=== PATIENT | female | born 1960 | race Caucasian/White ===

== ENCOUNTER 2016-05-28 07:07 | Inpatient (IN) | payer BC, OTHER ==
[~2016-05-28] VITALS: Ht 149.9 cm; Wt 73.0 kg
[2016-05-28 07:09] VITALS: Ht 149.9 cm; Wt 73.0 kg
[2016-05-28] MEDS ORDERED: ONDANSETRON 4 MG INJ IV STA (07:21)
[2016-05-28] MEDS ORDERED: SOD CHLORIDE 0.9% 1,000 ML IV STA (07:21)
[2016-05-28] MEDS ORDERED: HYDROmorphONE 1 MG/ML SYG IV STA (07:21)
[2016-05-28] MEDS ORDERED: METF-382 PO (07:37)
[2016-05-28] MEDS ORDERED: FAMO40TA52 PO (07:38)
[2016-05-28] MEDS ORDERED: LORA-186 PO (07:39)
[2016-05-28] MEDS ORDERED: AMLO-147 PO (07:39)
[2016-05-28] MEDS ORDERED: ATOR80TA75 PO (07:39)
[2016-05-28] MEDS ORDERED: ASPI-664 PO (07:40)
[2016-05-28 07:58] LABS: BASOPHIL # 0.1 10^3/ul (0.0-0.1); BASOPHILS % 0.6 % (0.0-2.0); HEMATOCRIT 44.7 % (37.0-47.0); HEMOGLOBIN 15.1 g/dl (12.0-16.0); LYMPHOCYTES % 6.3 % (15.0-51.0); MEAN CORPUSCULAR HEMOGLOBIN 29.8 pg (29.0-33.0); MEAN CORPUSCULAR HGB CONC 33.8 g/dl (32.0-37.0); MEAN CORPUSCULAR VOLUME 88.3 fl (82.0-101.0); MEAN PLATELET VOLUME 8.7 fl (7.4-10.4); MONOCYTE # 0.3 10^3/ul (0.3-0.9); MONOCYTES % 1.8 % (0.0-11.0); NEUTROPHIL # 14.2 10^3/ul (1.6-7.5); NEUTROPHILS % 91.3 % (39.0-77.0); PLATELET COUNT 364 10^3/UL (140-440); RED BLOOD COUNT 5.06 10^6/ul (4.20-5.40); RED CELL DISTRIBUTION WIDTH 13.1 % (11.5-14.5); UNCORRECTED WBC 15.6 10^3/ul (4.8-10.8); WHITE BLOOD COUNT 15.6 10^3/ul (4.8-10.8)
[2016-05-28 08:05] LABS: ALBUMIN 4.9 g/dl (3.3-4.9); CHLORIDE 100 mmol/L (97-110); POTASSIUM 3.7 mmol/L (3.5-5.1); SODIUM 140 mmol/L (135-144)
[2016-05-28 08:07] LABS: CONDITION 1; CREATININE 0.53 mg/dl (0.44-1.00); LH ANALYZER COMMENTS 1
[2016-05-28 08:08] LABS: ALANINE AMINOTRANSFERASE 116 IU/L (13-69); ALBUMIN/GLOBULIN RATIO 1.11; ALKALINE PHOSPHATASE 173 IU/L (42-121); ANION GAP 24 (8-16); ASPARTATE AMINO TRANSFERASE 48 IU/L (15-46); BILIRUBIN,INDIRECT 0.4 mg/dl (0-1.1); BILIRUBIN,TOTAL 0.4 mg/dl (0.2-1.3); BLOOD UREA NITROGEN 14 mg/dl (7-20); CALCIUM 10.1 mg/dl (8.4-10.2); CARBON DIOXIDE 20 mmol/L (21-31); GLUCOSE 242 mg/dl (70-220); TOTAL PROTEIN 9.3 g/dl (6.1-8.1)
--- NOTE | 2016-05-28 08:10 | RADRPT ---
PROCEDURE: CT abdomen and pelvis without IV contrast CLINICAL INDICATION: Abdominal pain, vomiting and chills. TECHNIQUE: Axial images were obtained through the abdomen and pelvis without IV contrast. Coronal and sagittal reconstructions were obtained. Automated exposure control was utilized. DLP = 842.6 m Gy-cm. CTDiol= 14.9 mGy. COMPARISON: none available FINDINGS: The visualized lower lungs are clear. Heart size is within normal limits. Diffuse fatty infiltration of the liver is identified. Multiple calcified gallstones are seen in th e gallbladder. The pancreas, spleen and adrenals are unremarkable. The kidneys demonstrate a normal appearance. No obstructive uropathy is observed. The bladder is fi lled with a small amount of urine. The uterus has an unremarkable appearance. Air and stool are seen scattered within the colon. The appendix is normal. No dilated loops of sm all bowel are observed. The stomach and duodenum are unremarkable. No intra-abdominal or pelvic free fluid or fluid collections are observed. No intra-abdominal or pe lvic lymphadenopathy is observed. Mild scattered calcified atherosclerosis is seen in the aorta. Mild degenerative changes are seen in the spine. Subcutaneous and muscular soft tissues surrounding the abdomen and pelvis are unremarkable. IMPRESSION: Limited evaluation for intra-abdominal inflammatory processes without IV contrast. If there is clin ical concern for a intra-abdominal inflammatory process repeat exam with IV contrast is recommended. Diffuse fatty infiltration of the liver. Cholelithiasis. Degenerative changes in the spine and calcified atherosclerosis in the arterial vasculature. RPTAT: AA .Rommel Parnell MD, MD Date Time Electronically viewed and signed by .Rommel Parnell MD, MD on 05/28/2016 08:10 .P/
[2016-05-28 08:38] LABS: TROPONIN-I < 0.012 ng/ml (0.00-0.12)
--- NOTE | 2016-05-28 09:00 | RADRPT ---
PROCEDURE: US Abdomen (right upper quadrant). CLINICAL INDICATION: Right upper quadrant pain. TECHNIQUE: Multiple real-time longitudinal and transverse images of the right upper quadrant of th e abdomen were acquired utilizing a curved array transducer. Images were reviewed on a high-resoluti on PACS workstation. COMPARISON: CT abdomen pelvis from the same date. FINDINGS: The liver is normal in size with a heterogeneous coarsened echotexture suggesting steatosis without focal mass or intrahepatic biliary dilatation. There is normal hepatopedal flow within the main por mare vein. The gallbladder is remarkable for multiple echogenic, shadowing gallstones in the depende nt portion of gallbladder. There is no wall thickening. There is no pericholecystic fluid. There is a positive sonographic Mckeon's sign. The common bile duct measures 2.9 mm in maximal dimension. The visualized portions of the pancreas are unremarkable with obscuration of the tail of the pancr eas. No free fluid is identified. The right kidney measures 11.1 cm in length. There is normal echogenicity within the right kidney. There is no perinephric fluid collection. No hydronephrosis, mass, or calculus is seen. IMPRESSION: 1. Heterogeneous echotexture of the liver suggesting diffuse steatosis. 2. Cholelithiasis with a positive sonographic Mckeon's sign without biliary tree dilatation. This may indicate associated acute cholecystitis. RPTAT: [facility] Physician Fermin Date Time Electronically viewed and signed by Physician Fermin on 05/28/2016 09:00 FIOR/
[2016-05-28 09:43] LABS: ADD UMIC YES; URINE BILIRUBIN (Dip) NEGATIVE (NEGATIVE); URINE BLOOD (Dip) TRACE (NEGATIVE); URINE COLOR LT. YELLOW (YELLOW); URINE KETONES (Dip) TRACE (NEGATIVE); URINE LEUKOCYTE ESTERASE (Dip) NEGATIVE (NEGATIVE); URINE NITRITE (Dip) NEGATIVE (NEGATIVE); URINE TOTAL PROTEIN (Dip) TRACE (NEGATIVE); URINE UROBILINOGEN (Dip) 0.2 E.U./dL (0.1-1.0)
[2016-05-28] MEDS ORDERED: GLUCOSE GEL 15 GRAM TUBE PO PRN ×2 (10:30)
[2016-05-28] MEDS ORDERED: DEXTROSE 50% 50 ML SYRINGE IV PRN ×2 (10:30)
[2016-05-28] MEDS ORDERED: NACL 0.9% 3 ML SYG IV SCH (10:30)
[2016-05-28] MEDS ORDERED: BISACODYL 10 MG SUPP PR PRN (10:30)
[2016-05-28] MEDS ORDERED: ONDANSETRON 4 MG INJ IV PRN ×2 (10:30)
[2016-05-28] MEDS ORDERED: GLUCAGON 1 MG INJ IM PRN (10:30)
[2016-05-28] MEDS ORDERED: ACETAMINOPHEN 325 MG TAB PO PRN ×2 (10:30)
[2016-05-28] MEDS ORDERED: GLUCOSE GEL 15 GRAM TUBE BUCCAL PRN (10:30)
[2016-05-28] MEDS ORDERED: ACETAMINOPHEN 650 MG SUPP PR PRN (10:30)
[2016-05-28] MEDS ORDERED: DOCUSATE SODIUM 100 MG CAP PO PRN (10:30)
--- NOTE | 2016-05-28 10:31 | ERA ---
ER Documentation Chief Complaint Date/Time DATE: 05/28/16 TIME: 10:29 Chief Complaint vomitting, back and abd pain started last night HPI Patient is a 55-year-old female with hypertension, diabetes, and high cholesterol who presents with abdominal pain. She is also had chills and subjective fever. She has had vomiting but no diarrhea. She has pain in the epigastric area and has been vomiting yellow. She has no treatment as of yet. Upon review of old medical records this is the patient's first visit to the ER. Her primary doctor is Dr. Yeung. ROS All systems reviewed and are negative except as per history of present illness. Medications Home Meds Reported Medications Aspirin (Low Dose Aspirin) 81 Mg Tablet.dr, 81 MG PO DAILY, #30 TAB 05/28/16 Atorvastatin* (Atorvastatin*) 80 Mg Tablet, 80 MG PO QHS, #30 TAB 05/28/16 Amlodipine Besylate* (Amlodipine Besylate*) 10 Mg Tablet, 10 MG PO DAILY, #30 TAB 05/28/16 Loratadine* (Claritin*) 10 Mg Tablet, 10 MG PO DAILY, TAB 05/28/16 Famotidine* (Famotidine*) 40 Mg Tablet, 40 MG PO HS, #30 TAB 05/28/16 Metformin Hcl* (Metformin Hcl*) 500 Mg Tablet, 500 MG PO WITH BREAKFAST, #30 TAB 05/28/16 Allergies Allergies: Coded Allergies: No Known Allergy (Unverified , 05/28/16) PMhx/Soc Positive for hypertension, diabetes, and high cholesterol Hx Alcohol Use: No Hx Substance Use: No Hx Tobacco Use: No Smoking Status: Never smoker FmHx Family History: diabetes Physical Exam Vitals Vital Signs Date Time Temp Pulse Resp B/P Pulse Ox O2 Delivery O2 Flow Rate FiO2 05/28/16 07:09 99.3 99 19 156/89 100 Physical Exam Const: Moderate distress secondary to pain Head: Atraumatic Eyes: Normal Conjunctiva ENT: Normal External Ears, Nose and Mouth. Neck: Full range of motion..~ No meningismus. Resp: Clear to auscultation bilaterally Cardio: Regular rate and rhythm, no murmurs Abd: Right upper quadrant and epigastric pain with pain with palpation, positive Mckeon sign Skin: No petechiae or rashes Back: No midline or flank tenderness Ext: No cyanosis, or edema Neur: Awake and alert Psych: Normal Mood and Affect Result Diagram: 05/28/16 0735 05/28/16 0735 Results 24 hrs Laboratory Tests Test 05/28/16 07:25 05/28/16 07:35 05/28/16 09:20 Bedside Glucose 241mg/dL Alanine Aminotransferase (ALT/SGPT) 116IU/L Albumin 4.9g/dl Albumin/Globulin Ratio 1.11 Alkaline Phosphatase 173IU/L Anion Gap 24 Aspartate Amino Transf (AST/SGOT) 48IU/L Basophils # 0.110^3/ul Basophils % 0.6% Blood Urea Nitrogen 14mg/dl Calcium Level 10.1mg/dl Carbon Dioxide Level 20mmol/L Chloride Level 100mmol/L Creatinine 0.53mg/dl Direct Bilirubin 0.00mg/dl Eosinophils # 0.010^3/ul Eosinophils % 0.0% Globulin 4.40g/dl Glucose Level 242mg/dl Hematocrit 44.7% Hemoglobin 15.1g/dl Indirect Bilirubin 0.4mg/dl Lipase 143U/L Lymphocytes # 1.010^3/ul Lymphocytes % 6.3% Mean Corpuscular Hemoglobin 29.8pg Mean Corpuscular Hemoglobin Concent 33.8g/dl Mean Corpuscular Volume 88.3fl Mean Platelet Volume 8.7fl Monocytes # 0.310^3/ul Monocytes % 1.8% Neutrophils # 14.210^3/ul Neutrophils % 91.3% Nucleated Red Blood Cells # 0.010^3/ul Nucleated Red Blood Cells % 0.0/100WBC Platelet Count 64965^3/UL Potassium Level 3.7mmol/L Red Blood Count 5.0610^6/ul Red Cell Distribution Width 13.1% Sodium Level 140mmol/L Total Bilirubin 0.4mg/dl Total Protein 9.3g/dl Troponin I < 0.012ng/ml White Blood Count 15.610^3/ul Urine Bilirubin NEGATIVE Urine Clarity CLEAR Urine Color LT. YELLOW Urine Glucose 0.5%% Urine Hemoglobin TRACE Urine Ketones TRACE Urine Leukocyte Esterase NEGATIVE Urine Microscopic RBC 2-5/HPF Urine Microscopic WBC 2-5/HPF Urine Nitrite NEGATIVE Urine Specific [place] 1.020 Urine Total Protein TRACE Urine Urobilinogen 0.2 E.U./dL Urine pH 6.0 Current Medications Medications (Trade) Dose Ordered Sig/Temo Route PRN Reason Start Time Stop Time Status Last Admin Dose Admin Sodium Chloride (NS) 1,000 ml @ 1,000 mls/hr Q1H STAT IV 05/28/16 07:21 05/28/16 08:20 DC 05/28/16 07:41 Hydromorphone HCl (Dilaudid) 1 mg ONCE STAT IV 05/28/16 07:21 05/28/16 07:22 DC 05/28/16 07:42 Ondansetron HCl (Zofran Inj) 4 mg ONCE STAT IV 05/28/16 07:21 05/28/16 07:22 DC 05/28/16 07:41 Ondansetron HCl (Zofran Inj) 4 mg BRIDGE ORDER PRN IV NAUSEA AND/OR VOMITING 05/28/16 10:30 05/29/16 10:29 Acetaminophen (Tylenol Tab) 650 mg ER BRIDGE PRN PO MILD PAIN/FEVER 05/28/16 10:30 05/29/16 10:29 Insulin Aspart (Novolog Insulin Pen) NOVOLOG *MILD* ALGORI... Q6 SC 05/28/16 12:00 UNV Miscellaneous Information (* Miscellaneous Pharmacy Order) HYPOGLYCEMIA PROTOCOL w... ONCE ONCE XX 05/28/16 10:30 05/28/16 10:31 UNV Miscellaneous Information (* Miscellaneous Pharmacy Order) Discontinue Glyburide, Glipizide,... ONCE ONCE XX 05/28/16 10:30 05/28/16 10:31 UNV Miscellaneous Information (* Miscellaneous Pharmacy Order) Discontinue all previ... ONCE ONCE XX 05/28/16 10:30 05/28/16 10:31 UNV Amlodipine Besylate (Norvasc) 10 mg DAILY PO 05/29/16 09:00 UNV Aspirin 81 mg 81 mg DAILY PO 05/29/16 09:00 UNV Potassium Chloride/Sodium Chloride (04/29 NS + KCl 20 Meq) 1,000 ml @ 80 mls/hr [id number] IV 05/28/16 10:13 UNV IV Flush (NS 3 ml) 3 ml PER PROTOCOL IV 05/28/16 10:30 UNV Ondansetron HCl (Zofran Inj) 4 mg Q6H PRN IV NAUSEA AND/OR VOMITING 05/28/16 10:30 UNV Acetaminophen (Tylenol Tab) 650 mg Q6H PRN PO PAIN LEVEL 1-3 OR FEVER 05/28/16 10:30 UNV Acetaminophen (Tylenol Supp) 650 mg Q6H PRN [place] PAIN LEVEL 1-3 OR FEVER 05/28/16 10:30 UNV Morphine Sulfate (morphine) 2 mg Q4H PRN IV SEVERE PAIN LEVEL 7-10 05/28/16 10:30 UNV Docusate Sodium (Colace) 100 mg Q12H PRN PO CONSTIPATION 05/28/16 10:30 UNV Bisacodyl (Dulcolax Supp) 10 mg DAILY PRN [place] CONSTIPATION 05/28/16 10:30 UNV Pantoprazole (Protonix Iv) 40 mg DAILY@06 IV 05/29/16 06:00 UNV Procedures/MDM Ultrasound shows possible acute cholecystitis per radiology. EKG and chest x-ray pending. Patient is a 55-year-old female presents with what appears to be acute cholecystitis. Her white blood cell count is elevated as well as her AST and ALT. The patient was given Dilaudid and Zofran as well as normal saline fluid bolus. The patient will be admitted to Dr. Campos from the panel team as she has [facility] insurance. I also spoke with Dr. Carpenter who is the surgeon on- call who will see the patient in consultation. The patient will be admitted to a medical surgical bed. At this point I doubt pancreatitis or appendicitis. Departure Diagnosis: Primary Impression: Abdominal pain Qualified Code: R10.11 - Right upper quadrant abdominal pain Additional Impression: Cholecystitis Condition: GLORIA Loving MD May 28, 2016 10:31
--- NOTE | 2016-05-28 10:34 | CONS ---
Date/Time of Note Date/Time of Note DATE: 05/28/16 TIME: 10:32 Assessment/Plan Assessment/Plan Additional Assessment/Plan Preliminary assessment and plan post remote check: 55 y/o with cholelithiasis and clinical picture concerning for acute cholecystitis. Due to elevation of alk phos, I'm also recommending an MRCP and GI consultation for possible ERCP if indicated by clinical data. Lap carson once these are done. Appreciate the consult. Full note to follow visit with patient. Consultation Date/Type/Reason Admit Date/Time Social History Smoking Status: Never smoker Exam/Review of Systems Vital Signs Vitals Vital Signs Date Time Temp Pulse Resp B/P Pulse Ox O2 Delivery O2 Flow Rate FiO2 05/28/16 07:09 99.3 99 19 156/89 100 Results Result Diagram: 05/28/16 0735 05/28/16 0735 Results 24 hrs Laboratory Tests Test 05/28/16 07:25 05/28/16 07:35 05/28/16 09:20 Bedside Glucose 241 H Alanine Aminotransferase (ALT/SGPT) 116 H Albumin 4.9 Albumin/Globulin Ratio 1.11 Alkaline Phosphatase 173 H Anion Gap 24 H Aspartate Amino Transf (AST/SGOT) 48 H Basophils # 0.1 Basophils % 0.6 Blood Urea Nitrogen 14 Calcium Level 10.1 Carbon Dioxide Level 20 L Chloride Level 100 Creatinine 0.53 Direct Bilirubin 0.00 Eosinophils # 0.0 Eosinophils % 0.0 Globulin 4.40 H Glucose Level 242 H Hematocrit 44.7 Hemoglobin 15.1 Indirect Bilirubin 0.4 Lipase 143 Lymphocytes # 1.0 Lymphocytes % 6.3 L Mean Corpuscular Hemoglobin 29.8 Mean Corpuscular Hemoglobin Concent 33.8 Mean Corpuscular Volume 88.3 Mean Platelet Volume 8.7 Monocytes # 0.3 Monocytes % 1.8 Neutrophils # 14.2 H Neutrophils % 91.3 H Nucleated Red Blood Cells # 0.0 Nucleated Red Blood Cells % 0.0 Platelet Count 364 Potassium Level 3.7 Red Blood Count 5.06 Red Cell Distribution Width 13.1 Sodium Level 140 Total Bilirubin 0.4 Total Protein 9.3 H Troponin I < 0.012 White Blood Count 15.6 H Urine Bilirubin NEGATIVE Urine Clarity CLEAR Urine Color LT. YELLOW Urine Glucose 0.5% H Urine Hemoglobin TRACE Urine Ketones TRACE H Urine Leukocyte Esterase NEGATIVE Urine Microscopic RBC 2-5 Urine Microscopic WBC 2-5 Urine Nitrite NEGATIVE Urine Specific [place] 1.020 Urine Total Protein TRACE Urine Urobilinogen 0.2 E.U./dL Urine pH 6.0 Medications Medications Current Medications Insulin Aspart (Novolog Insulin Pen) NOVOLOG *MILD* ALGORI... Q6 SC ; Start at 12:00; Status UNV Amlodipine Besylate (Norvasc) 10 mg DAILY PO ; Start 05/29/16 at 09:00 Aspirin 81 mg 81 mg DAILY PO ; Start 05/29/16 at 09:00 Potassium Chloride/Sodium Chloride (04/29 NS + KCl 20 Meq) 1,000 ml @ 80 mls/hr [id number] IV ; Start 05/28/16 at 10:13 Ondansetron HCl (Zofran Inj) 4 mg Q6H PRN IV NAUSEA AND/OR VOMITING; Start at 10:30; Status UNV Acetaminophen (Tylenol Tab) 650 mg Q6H PRN PO PAIN LEVEL 1-3 OR FEVER; Start at 10:30 Acetaminophen (Tylenol Supp) 650 mg Q6H PRN [place] PAIN LEVEL 1-3 OR FEVER; Start 05/28/16 at 10:30 Morphine Sulfate (morphine) 2 mg Q4H PRN IV SEVERE PAIN LEVEL 7-10; Start 05/28 at 10:30; Status UNV Docusate Sodium (Colace) 100 mg Q12H PRN PO CONSTIPATION; Start 05/28/16 at 10: 30 Bisacodyl (Dulcolax Supp) 10 mg DAILY PRN [place] CONSTIPATION; Start 05/28/16 at 10 :30 Pantoprazole (Protonix Iv) 40 mg DAILY@06 IV ; Start 05/29/16 at 06:00; Status UNV Miscellaneous Information 1 ea NOTE XX ; Start 05/28/16 at 10:30 Glucose (Glutose) 15 gm Q15M PRN PO DECREASED GLUCOSE; Start 05/28/16 at 10:30 Glucose (Glutose) 22.5 gm Q15M PRN PO DECREASED GLUCOSE; Start 05/28/16 at 10: 30 Dextrose (D50w Syringe) 25 ml Q15M PRN IV DECREASED GLUCOSE; Start 05/28/16 at 10:30 Dextrose (D50w Syringe) 50 ml Q15M PRN IV DECREASED GLUCOSE; Start 05/28/16 at 10:30 Glucagon (Glucagen) 1 mg Q15M PRN IM DECREASED GLUCOSE; Start 05/28/16 at 10:30 Glucose (Glutose) 15 gm Q15M PRN BUCCAL DECREASED GLUCOSE; Start 05/28/16 at 10 :30 ALON MODI M.D. May 28, 2016 10:34
--- NOTE | 2016-05-28 11:37 | RADRPT ---
PROCEDURE: Chest Radiograph. CLINICAL INDICATION: Preop. TECHNIQUE: Single frontal chest radiograph. COMPARISON: CT abdomen pelvis 05/28/2016. FINDINGS: Heart size is within normal limits. Atherosclerotic calcifications are present. No infiltrate or effusion is seen. The bones are intact. IMPRESSION: 1. No evidence of acute cardiopulmonary disease. 2. Atherosclerotic vascular disease. RPTAT: KK .Yaw Teixeira MD, MD Date Time Electronically viewed and signed by .Yaw Teixeira MD, on 05/28/2016 11:36 .B/
--- NOTE | 2016-05-28 13:29 | CONS ---
Date/Time of Note Date/Time of Note DATE: 05/28/16 TIME: 13:24 Assessment/Plan Assessment/Plan Additional Assessment/Plan Abdominal pain Nausea Vomiting * CT abdomen noted cholelithiasis * MRCP in process to rule out choledocholithiasis * ERCP if clinically indicated. Patient and daughter advised of risks/benefits/ alternatives to procedure and they are agreeable to proceed * IV fluid hydration * N.p.o. * Monitor labs Transaminitis * Likely secondary to biliary obstruction * Acute hepatitis panel ordered Surgery following Further recommendations depend on clinical course Patient seen in collaboration with Dr. Gallegos Consultation Date/Type/Reason Admit Date/Time Type of Consultation: Gastroenterology Reason for Consultation Abdominal pain Hx of Present Illness 55-year-old female reports of acute epigastric abdominal pain, chills, nausea and nonbloody bilious vomiting 1 day. Patient states symptoms began abruptly last night. Patient denies hematemesis, diarrhea, fever, chest pain, shortness of breath, sick contacts, travel outside the [place], and alcohol abuse. Patient denies previous episode, aggravating and alleviating factors. Social History Smoking Status: Never smoker Exam/Review of Systems Vital Signs Vitals Vital Signs Date Time Temp Pulse Resp B/P Pulse Ox O2 Delivery O2 Flow Rate FiO2 05/28/16 07:09 99.3 99 19 156/89 100 Exam Constitutional: alert, obese, oriented, well developed Psych: nl mood/affect Head: normocephalic Eyes: EOMI, nl conjunctiva, nl lids ENMT: nl external ears & nose, nl lips & teeth, nl nasal mucosa & septum Respiratory: normal air movement Cardiovascular: regular rate and rhythm Gastrointestinal: soft, tender (Right upper quadrant and epigastric) Neurological: PRINT DEVELOPER II-XII intact Results Result Diagram: 05/28/16 0735 05/28/16 0735 Results 24 hrs Laboratory Tests Test 05/28/16 07:25 05/28/16 07:35 05/28/16 09:20 05/28/16 12:56 Bedside Glucose 241 H 184 Alanine Aminotransferase (ALT/SGPT) 116 H Albumin 4.9 Albumin/Globulin Ratio 1.11 Alkaline Phosphatase 173 H Anion Gap 24 H Aspartate Amino Transf (AST/SGOT) 48 H Basophils # 0.1 Basophils % 0.6 Blood Urea Nitrogen 14 Calcium Level 10.1 Carbon Dioxide Level 20 L Chloride Level 100 Creatinine 0.53 Direct Bilirubin 0.00 Eosinophils # 0.0 Eosinophils % 0.0 Globulin 4.40 H Glucose Level 242 H Hematocrit 44.7 Hemoglobin 15.1 Indirect Bilirubin 0.4 Lipase 143 Lymphocytes # 1.0 Lymphocytes % 6.3 L Mean Corpuscular Hemoglobin 29.8 Mean Corpuscular Hemoglobin Concent 33.8 Mean Corpuscular Volume 88.3 Mean Platelet Volume 8.7 Monocytes # 0.3 Monocytes % 1.8 Neutrophils # 14.2 H Neutrophils % 91.3 H Nucleated Red Blood Cells # 0.0 Nucleated Red Blood Cells % 0.0 Platelet Count 364 Potassium Level 3.7 Red Blood Count 5.06 Red Cell Distribution Width 13.1 Sodium Level 140 Total Bilirubin 0.4 Total Protein 9.3 H Troponin I < 0.012 White Blood Count 15.6 H Urine Bilirubin NEGATIVE Urine Clarity CLEAR Urine Color LT. YELLOW Urine Glucose 0.5% H Urine Hemoglobin TRACE Urine Ketones TRACE H Urine Leukocyte Esterase NEGATIVE Urine Microscopic RBC 2-5 Urine Microscopic WBC 2-5 Urine Nitrite NEGATIVE Urine Specific [place] 1.020 Urine Total Protein TRACE Urine Urobilinogen 0.2 E.U./dL Urine pH 6.0 Medications Medications Current Medications Insulin Aspart (Novolog Insulin Pen) NOVOLOG *MILD* ALGORI... Q6 SC ; Start at 12:00 Amlodipine Besylate (Norvasc) 10 mg DAILY PO ; Start 05/29/16 at 09:00 Aspirin 81 mg 81 mg DAILY PO ; Start 05/29/16 at 09:00 Potassium Chloride/Sodium Chloride (04/29 NS + KCl 20 Meq) 1,000 ml @ 80 mls/hr [id number] IV ; Start 05/28/16 at 10:13 Ondansetron HCl (Zofran Inj) 4 mg Q6H PRN IV NAUSEA AND/OR VOMITING; Start at 10:30 Acetaminophen (Tylenol Tab) 650 mg Q6H PRN PO PAIN LEVEL 1-3 OR FEVER; Start at 10:30 Acetaminophen (Tylenol Supp) 650 mg Q6H PRN [place] PAIN LEVEL 1-3 OR FEVER; Start 05/28/16 at 10:30 Morphine Sulfate (morphine) 2 mg Q4H PRN IV SEVERE PAIN LEVEL 7-10; Start 05/28 at 10:30 Docusate Sodium (Colace) 100 mg Q12H PRN PO CONSTIPATION; Start 05/28/16 at 10: 30 Bisacodyl (Dulcolax Supp) 10 mg DAILY PRN [place] CONSTIPATION; Start 05/28/16 at 10 :30 Pantoprazole (Protonix Iv) 40 mg DAILY@06 IV ; Start 05/29/16 at 06:00 Miscellaneous Information 1 ea NOTE XX ; Start 05/28/16 at 10:30 Glucose (Glutose) 15 gm Q15M PRN PO DECREASED GLUCOSE; Start 05/28/16 at 10:30 Glucose (Glutose) 22.5 gm Q15M PRN PO DECREASED GLUCOSE; Start 05/28/16 at 10: 30 Dextrose (D50w Syringe) 25 ml Q15M PRN IV DECREASED GLUCOSE; Start 05/28/16 at 10:30 Dextrose (D50w Syringe) 50 ml Q15M PRN IV DECREASED GLUCOSE; Start 05/28/16 at 10:30 Glucagon (Glucagen) 1 mg Q15M PRN IM DECREASED GLUCOSE; Start 05/28/16 at 10:30 Glucose (Glutose) 15 gm Q15M PRN BUCCAL DECREASED GLUCOSE; Start 05/28/16 at 10 :30 BASILIO KIM May 28, 2016 13:29
[2016-05-28] MEDS: morphine 2 MG INJ IV PRN ×2 (13:39→18:35)
[2016-05-28] MEDS: INSULIN ASPART [NOVOLOG] 3 ML PEN SC SCH ×2 (13:39→18:40)
[2016-05-28 13:42] VITALS: TEMP 98.3
[2016-05-28 13:48] LABS: HAAIG REFLEX REFLEX FILED
[2016-05-28 14:56] LABS: HEPATITIS B CORE ANTIBODY NEGATIVE (NEGATIVE)
--- NOTE | 2016-05-28 15:23 | RADRPT ---
PROCEDURE: MRCP without contrast. CLINICAL INDICATION: Right upper quadrant abdominal pain. TECHNIQUE: Routine MRCP was obtained without the administration of intravenous contrast. COMPARISON: Ultrasound, 05/28/2016. FINDINGS: There are multiple small gallstones with diffuse gallbladder wall thickening. Note is made of a sin gle calculus lodged within the neck of the gallbladder. There is no significant intrahepatic bile duct dilatation. There is no evidence of filling defect o r choledocholithiasis. There is no biliary stricture. The pancreatic duct is within normal limits. Trace perihepatic fluid. IMPRESSION: Cholelithiasis with diffuse gallbladder wall thickening; recommend clinical correlation for cholecys titis. No significant biliary dilatation, filling defect, or choledocholithiasis. RPTAT: EE .Paulo Muir MD, Date Time Electronically viewed and signed by .Paulo Muir MD, on 05/28/2016 15:26 .C/
[2016-05-28 18:30] VITALS: BP 145/78; PULSE 90; RESP 16
[2016-05-28 19:46] VITALS: BP 130/66; RESP 18
[2016-05-28] MEDS: 1/2 NS + KCL 20 MEQ 1,000 ML IV SCH ×2 (20:39→22:43)
--- NOTE | 2016-05-28 22:40 | CONS ---
[facility] INITIAL INPATIENT CONSULTATION NOTE DATE OF CONSULTATION: 05/28/2016 PLACE OF SERVICE: [facility] emergency department. IMPRESSION AND PLAN: A very pleasant 55-year-old lady with comorbidities of body mass index 32.5 as well as diabetes and hypertension and hyperlipidemia presenting with cholelithiasis and likely cholecystitis, but with slight concern for choledocholithiasis given elevation in alkaline phosphatase. I recommended an MRCP and gastroenterology consultation for possible consideration for ERCP. Laparoscopic cholecystectomy after above is done. I explained the rationale behind my recommendations to the patient and her daughter and answered all their questions to the best of my ability. They appeared to understand and agree with the plans. With the above assessment I have recommended the followin. Admit to the hospital. 2. Resuscitate. 3. Symptom control. 4. Gastroenterology consultation. 5. MRCP. 6. Possible ERCP if MRCP shows choledocholithiasis. 7. Laparoscopic cholecystectomy after above is done. Thank you again for allowing us to participate in the care of this very pleasant lady and her wonderful family. If there are any questions, please feel free to call me at area code [phone]. TOTAL VISIT TIME: 45 minutes of which more than half was spent in [id number] discussion with the patient, discussions with her daughter as well as coordination of care between multiple physicians and providers. DATE OF ADMISSION: 05/28/2016 HISTORY OF PRESENT ILLNESS: The patient is a very pleasant 55-year-old lady with comorbid issues including BMI of 32.5 and no other major medical or surgical issues who presented to [facility] emergency department with abdominal pain localized to the right upper quadrant associated with some nausea and vomiting. No prior episodes of similar issues in the past and no known prior biliary or pancreatic issues. Fairly healthy otherwise without any significant risk factors other than BMI 32.5. No other surgeries in the past. The patient's workup included laboratory values that showed white blood cell count of 15.6 as well as elevated alkaline phosphatase to 173 and right upper quadrant ultrasound that showed heterogeneous echotexture of the liver suggesting diffuse steatosis as well as cholelithiasis with positive sonographic Mckeon sign without biliary tree dilatation. A noncontrast CT of the abdomen and pelvis was also done that demonstrated similar findings with degenerative changes of the spine and calcified atherosclerosis in the arterial vasculature. I was kindly asked to consult and I had a chance to meet with the patient and family in the emergency department and do a complete history and physical myself. No other major complaints on my visit. PAST MEDICAL HISTORY: 1. BMI 32.5. 2. Diabetes. 3. Gastritis. 4. Hyperlipidemia. 5. Hypertension. PAST SURGICAL HISTORY: None. ALLERGIES: NO KNOWN DRUG ALLERGIES. MEDICATIONS: 1. Amlodipine. 2. Aspirin. 3. Atorvastatin. 4. Famotidine. 5. Loratadine. 6. Metformin. SOCIAL HISTORY: The patient does not report any smoking, drinking, or intravenous drug use. FAMILY HISTORY: No mention of major medical, surgical or oncologic issues in the family. There is history of diabetes and hypertension. REVIEW OF SYSTEMS: Other than above-mentioned, there are no other pertinent positives or pertinent negatives in a complete 14-point review of systems. PHYSICAL EXAMINATION: GENERAL: The patient appears to be a very pleasant lady of descent, appearing stated age, lying in bed comfortably and in mild distress. BMI 32.5. VITAL SIGNS: Showed temperature 99.3, blood pressure 156/89, pulse 99, respiratory rate 19, pulse oximetry 100% on room air. HEENT: Normocephalic and atraumatic. Extraocular muscles and hearing are grossly intact bilaterally and symmetrically. Sclerae are nonicteric. Oral cavity is clear; oral mucosa appeared to be pink and moist. Dentition: fair. NECK: Supple. There is no lymphadenopathy or JVD. There is no submental, submandibular or supraclavicular lymphadenopathy. CHEST: Rises symmetrically with each breath; patient is breathing comfortably. There are no audible wheezes, rales or rhonchi on the gross exam. HEART: HPulse is regular and palpable on the *right wrist. Capillary refill was normal. Carotid pulses are palpable bilaterally and symmetrically in the neck. EXTREMITIES: Lower extremities contain no pitting edema around the ankles bilaterally and symmetrically. ABDOMEN: Soft, nondistended and minimally tender to palpation in the right upper quadrant. There are no peritoneal signs or guarding. There is no evidence of organomegaly, caput medusae, engorged subcutaneous veins, or ascites. SKIN: Appears to be pink and feels warm to touch. NEUROLOGIC: Awake, alert, and follows commands appropriately. LABORATORY DATA: Reviewed above. IMAGING: Reviewed above. Dictated By: ALON KOO/OLEG Conf#: [id number] DID#: [id number] CC: RODDY CASTELLANOS MD; ALON MODI MD;*EndCC* MTDD
[2016-05-29] VITALS (14 sets, daily range): BP systolic 87–134; BP diastolic 44–73; PULSE 74–88; RESP 15–22
[2016-05-29] MEDS: INSULIN ASPART [NOVOLOG] 3 ML PEN SC SCH ×5 (00:14→23:45)
[2016-05-29 05:33] LABS: BASOPHILS % 0.1 % (0.0-2.0); HEMATOCRIT 41.7 % (37.0-47.0); HEMOGLOBIN 14.2 g/dl (12.0-16.0); LYMPHOCYTES # 1.1 10^3/ul (0.8-2.9); LYMPHOCYTES % 5.3 % (15.0-51.0); MEAN CORPUSCULAR HEMOGLOBIN 29.9 pg (29.0-33.0); MEAN CORPUSCULAR HGB CONC 34.1 g/dl (32.0-37.0); MEAN CORPUSCULAR VOLUME 87.7 fl (82.0-101.0); MEAN PLATELET VOLUME 8.3 fl (7.4-10.4); MONOCYTE # 1.4 10^3/ul (0.3-0.9); MONOCYTES % 6.8 % (0.0-11.0); NEUTROPHIL # 18.2 10^3/ul (1.6-7.5); NEUTROPHILS % 87.8 % (39.0-77.0); PLATELET COUNT 339 10^3/UL (140-440); RED BLOOD COUNT 4.75 10^6/ul (4.20-5.40); RED CELL DISTRIBUTION WIDTH 13.3 % (11.5-14.5); UNCORRECTED WBC 20.7 10^3/ul (4.8-10.8); WHITE BLOOD COUNT 20.7 10^3/ul (4.8-10.8)
[2016-05-29] MEDS: PANTOPRAZOLE 40 MG INJ IV SCH (05:49)
[2016-05-29 05:50] LABS: CONDITION 1; LH ANALYZER COMMENTS 1
[2016-05-29 06:04] LABS: POTASSIUM 3.9 mmol/L (3.5-5.1)
[2016-05-29 06:06] LABS: CREATININE 0.52 mg/dl (0.44-1.00)
[2016-05-29 06:07] LABS: ALBUMIN/GLOBULIN RATIO 1.02; CALCIUM 9.3 mg/dl (8.4-10.2); TOTAL PROTEIN 7.9 g/dl (6.1-8.1)
[2016-05-29 06:08] LABS: MAGNESIUM 2.1 mg/dl (1.7-2.5)
[2016-05-29 06:58] LABS: AMYLASE 37 U/L (11-123)
[2016-05-29] MEDS ORDERED: EPHEDrine SULFATE 50 MG/5 ML SYG ONE (07:00)
[2016-05-29] MEDS: morphine 2 MG INJ IV PRN (07:52)
[2016-05-29] MEDS: 1/2 NS + KCL 20 MEQ 1,000 ML IV SCH (08:17)
[2016-05-29] MEDS: PIPER-TAZO 3.375 GM IV (PMX) 100 ML IVPB SCH ×4 (08:18→23:42)
[2016-05-29] MEDS: ASPIRIN (EC) 81 MG TAB PO SCH (08:22)
[2016-05-29] MEDS: AMLODIPINE 10 MG TAB PO SCH (08:22)
--- NOTE | 2016-05-29 09:55 | CONS ---
Date/Time of Note Date/Time of Note DATE: 05/29/16 TIME: 09:43 Assessment/Plan Assessment/Plan Chief Complaint/Hosp Course 55-year-old female reports of acute epigastric abdominal pain, chills, nausea and nonbloody bilious vomiting 1 day. Patient states symptoms began abruptly last night. Patient denies hematemesis, diarrhea, fever, chest pain, shortness of breath, sick contacts, travel outside the [place], and alcohol abuse. Patient denies previous episode, aggravating and alleviating factors. Problems: Additional Assessment/Plan Abdominal pain Nausea Vomiting * CT abdomen noted cholelithiasis * MRCP 05-28-16: Cholelithiasis with diffuse gallbladder wall thickening; recommend clinical correlation for cholecystitis. * No significant biliary dilatation, filling defect, or choledocholithiasis. * ERCP if clinically indicated. Patient and daughter advised of risks/benefits/ alternatives to procedure and they are agreeable to proceed * IV fluid hydration * N.p.o. * Monitor labs Transaminitis * Likely secondary to cholelithiasis * Acute hepatitis panel, negative Surgery following Further recommendations depend on clinical course Patient seen in collaboration with Dr. Gallegos Consultation Date/Type/Reason Admit Date/Time May 28, 2016 at 10:02 Initial Consult Date Type of Consultation: Gastroenterology 24 HR Interval Summary Free Text/Dictation Amylase and lipase WNL Patient reports less pain States cholecystectomy as inpatient tomorrow Exam/Review of Systems Vital Signs Vitals Vital Signs Date Time Temp Pulse Resp B/P Pulse Ox O2 Delivery O2 Flow Rate FiO2 05/29/16 07:10 101.1 94 20 134/73 94 05/28/16 18:30 Room Air Intake and Output 05/28/16 05/28/16 05/29/16 15:00 23:00 07:00 Intake Total 700 ml Balance 700 ml Exam Constitutional: alert, obese, oriented, well developed Psych: nl mood/affect Head: normocephalic Eyes: EOMI, nl conjunctiva, nl lids ENMT: nl external ears & nose, nl lips & teeth, nl nasal mucosa & septum Respiratory: normal air movement Cardiovascular: regular rate and rhythm Gastrointestinal: soft, tender (Right upper quadrant and epigastric) Neurological: RECRUITMENT AND OUTREACH ASSISTANT II-XII intact Results Result Diagram: 05/29/16 0500 05/29/16 0500 Results 24 hrs Laboratory Tests Test 05/28/16 12:56 05/28/16 18:38 05/29/16 00:09 05/29/16 05:00 Bedside Glucose 184 183 213 Alanine Aminotransferase (ALT/SGPT) 85 H Albumin 4.0 Albumin/Globulin Ratio 1.02 Alkaline Phosphatase 139 H Amylase Level 37 Anion Gap 19 H Aspartate Amino Transf (AST/SGOT) 28 Basophils # 0.0 Basophils % 0.1 Blood Urea Nitrogen 12 Calcium Level 9.3 Carbon Dioxide Level 23 Chloride Level 99 Cholesterol Level 190 Cholesterol/HDL Ratio 4.0 Creatinine 0.52 Direct Bilirubin 0.00 Eosinophils # 0.0 Eosinophils % 0.0 Globulin 3.90 H Glucose Level 197 HDL Cholesterol 47 Hematocrit 41.7 Hemoglobin 14.2 Hemoglobin A1c 7.8 H Indirect Bilirubin 1.0 LDL Cholesterol, Calculated 122 Lipase 66 Lymphocytes # 1.1 Lymphocytes % 5.3 L Magnesium Level 2.1 Mean Corpuscular Hemoglobin 29.9 Mean Corpuscular Hemoglobin Concent 34.1 Mean Corpuscular Volume 87.7 Mean Platelet Volume 8.3 Monocytes # 1.4 H Monocytes % 6.8 Neutrophils # 18.2 H Neutrophils % 87.8 H Nucleated Red Blood Cells # 0.0 Nucleated Red Blood Cells % 0.0 Platelet Count 339 Potassium Level 3.9 Red Blood Count 4.75 Red Cell Distribution Width 13.3 Sodium Level 137 Total Bilirubin 1.0 Total Protein 7.9 # Triglycerides Level 103 White Blood Count 20.7 #H Test 05/29/16 05:44 Bedside Glucose 196 Medications Medications Current Medications Insulin Aspart (Novolog Insulin Pen) NOVOLOG *MILD* ALGORI... Q6 SC Last administered on 05/29/16 05:47; Admin Dose 2 UNIT; Start 05/28/16 at 12:00 Amlodipine Besylate (Norvasc) 10 mg DAILY PO Last administered on 05/29/16 08: 22; Admin Dose 10 MG; Start 05/29/16 at 09:00 Aspirin 81 mg 81 mg DAILY PO ; Start 05/29/16 at 09:00 Potassium Chloride/Sodium Chloride (04/29 NS + KCl 20 Meq) 1,000 ml @ 80 mls/hr [id number] IV Last administered on 05/29/16 08:17; Admin Dose 80 MLS/HR; Start at 10:13 Ondansetron HCl (Zofran Inj) 4 mg Q6H PRN IV NAUSEA AND/OR VOMITING Last administered on 05/28/16 13:39; Admin Dose 4 MG; Start 05/28/16 at 10:30 Acetaminophen (Tylenol Tab) 650 mg Q6H PRN PO PAIN LEVEL 1-3 OR FEVER Last administered on 05/29/16 08:22; Admin Dose 650 MG; Start 05/28/16 at 10:30 Acetaminophen (Tylenol Supp) 650 mg Q6H PRN AR PAIN LEVEL 1-3 OR FEVER; Start 05/28/16 at 10:30 Morphine Sulfate (morphine) 2 mg Q4H PRN IV SEVERE PAIN LEVEL 7-10 Last administered on 05/29/16 07:52; Admin Dose 2 MG; Start 05/28/16 at 10:30 Docusate Sodium (Colace) 100 mg Q12H PRN PO CONSTIPATION; Start 05/28/16 at 10: 30 Bisacodyl (Dulcolax Supp) 10 mg DAILY PRN AR CONSTIPATION; Start 05/28/16 at 10 :30 Pantoprazole (Protonix Iv) 40 mg DAILY@06 IV Last administered on 05/29/16 05: 49; Admin Dose 40 MG; Start 05/29/16 at 06:00 Miscellaneous Information 1 ea NOTE XX ; Start 05/28/16 at 10:30 Glucose (Glutose) 15 gm Q15M PRN PO DECREASED GLUCOSE; Start 05/28/16 at 10:30 Glucose (Glutose) 22.5 gm Q15M PRN PO DECREASED GLUCOSE; Start 05/28/16 at 10: 30 Dextrose (D50w Syringe) 25 ml Q15M PRN IV DECREASED GLUCOSE; Start 05/28/16 at 10:30 Dextrose (D50w Syringe) 50 ml Q15M PRN IV DECREASED GLUCOSE; Start 05/28/16 at 10:30 Glucagon (Glucagen) 1 mg Q15M PRN IM DECREASED GLUCOSE; Start 05/28/16 at 10:30 Glucose 15 gm 15 gm Q15M PRN BUCCAL DECREASED GLUCOSE; Start 05/28/16 at 10:30 Piperacillin Sod/ Tazobactam Sod (Zosyn 3.375gm/ 100 ml (Pmx)) 100 ml @ 200 mls /hr Q6 IVPB Last administered on 05/29/16 08:18; Admin Dose 200 MLS/HR; Start 05/29/16 at 08:00 BASILIO KIM May 29, 2016 09:54
[2016-05-29] MEDS ORDERED: FENTAnyl 50 MCG/ML VIAL ONE (10:04)
[2016-05-29] MEDS ORDERED: SUCCINYLCHOLINE CHLORIDE 100 MG/5 ML SYG IV ONE (10:04)
[2016-05-29] MEDS ORDERED: LIDOCAINE 2% (SDV) 5 ML INJ ONE (10:04)
[2016-05-29] MEDS ORDERED: ROCURONIUM 50 MG INJ ONE (10:04)
[2016-05-29] MEDS ORDERED: MIDAZOLAM 1 MG/ML 2 ML INJ ONE (10:04)
[2016-05-29] MEDS ORDERED: PROPOFOL 20 ML ONE (10:04)
--- NOTE | 2016-05-29 10:15 | HP ---
Date/Time of Note Date/Time of Note DATE: 05/28/2016 TIME: 6:00 pm Assessment/Plan VTE Prophylaxis VTE Prophylaxis Intervention: SCD's Lines/Catheters IV Catheter Type (from Nrs): Peripheral IV Urinary Cath still in place: No Assessment/Plan Chief Complaint/Hosp Course Assessment and plan 1. Acute cholecystitis Material Assembler and general surgery has been consulted Patient is made n.p.o., IV fluid pain medication has been initiated Broad-spectrum IV antibiotics 2. Diabetic mellitus Place patient on insulin sliding scale, when patient is able to tolerate oral intake we will start the patient on low-carb diet 3. Essential hypertension Well-controlled on medical management 4. Dyslipidemia Follow-up lipid panel and treat accordingly GI prophylaxis: On Protonix DVT prophylaxis: SCD We will continue monitor patient closely for recommendation management treatment as clinical course Problems: HPI/ROS Admit Date/Time Admit Date/Time May 28, 2016 at 10:02 Hx of Present Illness Is a 55-year-old female past medical history diabetic mellitus hypertension and dyslipidemia who presents to [place] emergency room secondary to having abdominal discomfort which started yesterday evening since 11 PM. Abdominal pain was accompanied with nausea with 8-10 episodes of vomiting and decreased p.o. intake secondary to abdominal pain. Patient denies of having any sick contact no recent travel history no consumption no abnormal food. The vomiting was nonbilious nonbloody. Patient presented [facility] room which was found to have acute cholecystitis and transaminitis. General surgery was consulted patient was made n.p.o. and initiated on IV fluids and antibiotics ROS Const: Negative for fever, chills, weight gain or weight loss, fatigue, or diaphoresis Eyes : No pain discharge or redness or change in visual acuity ENT: No pain, sore throat, congestion, congestion, dysphagia or discharge Respiratory: No shortness of breath, cough, sputum, wheezing, or pleuritic pain Cardiovascular: No chest pain, palpitation, PND, or edema GI : Decreased in appetite, mid epigastric abdominal pain, positive for nausea and vomiting, no diarrhea, constipation, or change in the color his stool Genitourinary: No dysuria, hematuria, flank pain , discharge or CVA tenderness Musculoskeletal: No joint pain, back pain, neck pain, restricted range of motion in neck or joints Skin: No rash, bruising or hives Neuro: No headache, dizziness, syncope, seizure, focal weakness Endocrine: No polyuria, polydipsia, temperature intolerance Psych: No hallucination, depression, anxiety or suicidal ideation Psychological: nl mood/affect PMH/Family/Social Past Medical History General: The patient is well-developed, Not in acute distress. HEENT: Atraumatic, normocephalic. The pupils are equal and round . Neck: Supple with full range of motion. Chest: Normal expansion of the thorax during inspiration Lungs: Clear to auscultation bilaterally Heart: Normal S1-S2, Regular rhythm and rate. Abdomen: Soft , mid epigastric and right upper quadrant tenderness, nondistended , bowel sounds are present. Extremities: Normal to inspection, no edema no cyanosis Neurologic: Normal mental status,The patient is awake, alert and oriented . Social History Smoking Status: Never smoker Exam/Review of Systems Vital Signs Vitals Vital Signs Date Time Temp Pulse Resp B/P Pulse Ox O2 Delivery O2 Flow Rate FiO2 05/29/16 07:10 101.1 94 20 134/73 94 05/28/16 18:30 Room Air Intake and Output 05/28/16 05/28/16 05/29/16 15:00 23:00 07:00 Intake Total 700 ml Balance 700 ml Labs Result Diagram: 05/29/16 0500 05/29/16 0500 Medications Medications Current Medications Insulin Aspart (Novolog Insulin Pen) NOVOLOG *MILD* ALGORI... Q6 SC Last administered on 05/29/16 05:47; Admin Dose 2 UNIT; Start 05/28/16 at 12:00 Amlodipine Besylate (Norvasc) 10 mg DAILY PO Last administered on 05/29/16 08: 22; Admin Dose 10 MG; Start 05/29/16 at 09:00 Aspirin 81 mg 81 mg DAILY PO ; Start 05/29/16 at 09:00 Potassium Chloride/Sodium Chloride (/2 NS + KCl 20 Meq) 1,000 ml @ 80 mls/hr [id number] IV Last administered on 05/29/16 08:17; Admin Dose 80 MLS/HR; Start at 10:13 Ondansetron HCl (Zofran Inj) 4 mg Q6H PRN IV NAUSEA AND/OR VOMITING Last administered on 05/28/16 13:39; Admin Dose 4 MG; Start 05/28/16 at 10:30 Acetaminophen (Tylenol Tab) 650 mg Q6H PRN PO PAIN LEVEL 1-3 OR FEVER Last administered on 05/29/16 08:22; Admin Dose 650 MG; Start 05/28/16 at 10:30 Acetaminophen (Tylenol Supp) 650 mg Q6H PRN DC PAIN LEVEL 1-3 OR FEVER; Start 05/28/16 at 10:30 Morphine Sulfate (morphine) 2 mg Q4H PRN IV SEVERE PAIN LEVEL 7-10 Last administered on 05/29/16 07:52; Admin Dose 2 MG; Start 05/28/16 at 10:30 Docusate Sodium (Colace) 100 mg Q12H PRN PO CONSTIPATION; Start 05/28/16 at 10: 30 Bisacodyl (Dulcolax Supp) 10 mg DAILY PRN DC CONSTIPATION; Start 05/28/16 at 10 :30 Pantoprazole (Protonix Iv) 40 mg DAILY@06 IV Last administered on 05/29/16 05: 49; Admin Dose 40 MG; Start 05/29/16 at 06:00 Miscellaneous Information 1 ea NOTE XX ; Start 05/28/16 at 10:30 Glucose (Glutose) 15 gm Q15M PRN PO DECREASED GLUCOSE; Start 05/28/16 at 10:30 Glucose (Glutose) 22.5 gm Q15M PRN PO DECREASED GLUCOSE; Start 05/28/16 at 10: 30 Dextrose (D50w Syringe) 25 ml Q15M PRN IV DECREASED GLUCOSE; Start 05/28/16 at 10:30 Dextrose (D50w Syringe) 50 ml Q15M PRN IV DECREASED GLUCOSE; Start 05/28/16 at 10:30 Glucagon (Glucagen) 1 mg Q15M PRN IM DECREASED GLUCOSE; Start 05/28/16 at 10:30 Glucose 15 gm 15 gm Q15M PRN BUCCAL DECREASED GLUCOSE; Start 05/28/16 at 10:30 Piperacillin Sod/ Tazobactam Sod (Zosyn 3.375gm/ 100 ml (Pmx)) 100 ml @ 200 mls /hr Q6 IVPB Last administered on 05/29/16 08:18; Admin Dose 200 MLS/HR; Start 05/29/16 at 08:00 RODDY CASTELLANOS MD May 29, 2016 10:15
[2016-05-29] MEDS ORDERED: BUPIVACAINE 0.25%/EPI (SDV) 30 ML INJ ONE (10:19)
[2016-05-29] MEDS ORDERED: PHENYLephrine (100 MCG/ML) 5ML SYG ONE (10:44)
[2016-05-29] MEDS ORDERED: ONDANSETRON 4 MG INJ ONE (10:51)
[2016-05-29] MEDS ORDERED: METOCLOPRAMIDE 10 MG INJ ONE (10:51)
[2016-05-29] MEDS ORDERED: MEPERIDINE 25 MG INJ IV PRN (11:00)
[2016-05-29] MEDS ORDERED: ONDANSETRON 4 MG INJ IV PRN (11:00)
[2016-05-29] MEDS ORDERED: PROCHLORPERAZINE 10 MG INJ IV PRN (11:00)
[2016-05-29] MEDS ORDERED: HYDROmorphONE (0.2 MG/ML) 10ML SYG IV PRN ×3 (11:00)
[2016-05-29] MEDS ORDERED: DIPHENHYDRAMINE 50 MG INJ IV PRN (11:00)
[2016-05-29] MEDS ORDERED: FENTAnyl 50 MCG/ML VIAL IV PRN (11:00)
[2016-05-29] MEDS ORDERED: GLYCOPYRROLATE 0.4 MG INJ ONE (11:19)
[2016-05-29] MEDS ORDERED: NEOSTIGMINE 3 MG/3 ML SYRINGE ONE (11:19)
[2016-05-29] MEDS ORDERED: HYDROmorphONE 2 MG/ML SYG ONE (11:20)
[2016-05-29] MEDS ORDERED: THROMBIN(HUM PLAS)/FIBRINOG/CA 5 ML VIAL TOP ONE (11:47)
--- NOTE | 2016-05-29 13:32 | PN ---
Date/Time of Note Date/Time of Note DATE: 05/29/16 TIME: 13:30 Assessment/Plan VTE Prophylaxis VTE Prophylaxis Intervention: SCD's Lines/Catheters IV Catheter Type (from Rust): Saline Lock Urinary Cath still in place: No Assessment/Plan Chief Complaint/Hosp Course Assessment and plan 1. Acute cholecystitis Master Hearth Technician and general surgery has been consulted Patient is made n.p.o., IV fluid pain medication has been initiated Continue Zosyn Plan for laparoscopic versus open cholecystectomy today, follow general surgery recommendations 2. Diabetic mellitus Place patient on insulin sliding scale, when patient is able to tolerate oral intake we will start the patient on low-carb diet 3. Essential hypertension Well-controlled on medical management 4. Dyslipidemia Follow-up lipid panel and treat accordingly GI prophylaxis: On Protonix DVT prophylaxis: SCD We will continue monitor patient closely for recommendation management treatment as clinical course Problems: Subjective 24 Hr Interval Summary Free Text/Dictation Patient has been taken down to the OR for surgical intervention According to nurse patient continued to complain of having abdominal discomfort No nausea vomiting Exam/Review of Systems Vital Signs Vitals Vital Signs Date Time Temp Pulse Resp B/P Pulse Ox O2 Delivery O2 Flow Rate FiO2 05/29/16 13:15 86 19 92/47 98 Mask 8.0 05/29/16 13:11 98.7 Intake and Output 05/28/16 05/28/16 05/29/16 15:00 23:00 07:00 Intake Total 2900 ml Output Total 200 ml Balance 2700 ml Exam Physical exam was deferred at this time Will evaluate the patient postoperatively Results Result Diagram: 05/29/16 0500 05/29/16 0500 Results 24 hrs Laboratory Tests Test 05/28/16 18:38 05/29/16 00:09 05/29/16 05:00 05/29/16 05:44 Bedside Glucose 183 213 196 Alanine Aminotransferase (ALT/SGPT) 85 H Albumin 4.0 Albumin/Globulin Ratio 1.02 Alkaline Phosphatase 139 H Amylase Level 37 Anion Gap 19 H Aspartate Amino Transf (AST/SGOT) 28 Basophils # 0.0 Basophils % 0.1 Blood Urea Nitrogen 12 Calcium Level 9.3 Carbon Dioxide Level 23 Chloride Level 99 Cholesterol Level 190 Cholesterol/HDL Ratio 4.0 Creatinine 0.52 Direct Bilirubin 0.00 Eosinophils # 0.0 Eosinophils % 0.0 Globulin 3.90 H Glucose Level 197 HDL Cholesterol 47 Hematocrit 41.7 Hemoglobin 14.2 Hemoglobin A1c 7.8 H Indirect Bilirubin 1.0 LDL Cholesterol, Calculated 122 Lipase 66 Lymphocytes # 1.1 Lymphocytes % 5.3 L Magnesium Level 2.1 Mean Corpuscular Hemoglobin 29.9 Mean Corpuscular Hemoglobin Concent 34.1 Mean Corpuscular Volume 87.7 Mean Platelet Volume 8.3 Monocytes # 1.4 H Monocytes % 6.8 Neutrophils # 18.2 H Neutrophils % 87.8 H Nucleated Red Blood Cells # 0.0 Nucleated Red Blood Cells % 0.0 Platelet Count 339 Potassium Level 3.9 Red Blood Count 4.75 Red Cell Distribution Width 13.3 Sodium Level 137 Total Bilirubin 1.0 Total Protein 7.9 # Triglycerides Level 103 White Blood Count 20.7 #H Test 05/29/16 13:28 Bedside Glucose 211 Medications Medications Current Medications Insulin Aspart (Novolog Insulin Pen) NOVOLOG *MILD* ALGORI... Q6 SC Last administered on 05/29/16 05:47; Admin Dose 2 UNIT; Start 05/28/16 at 12:00 Amlodipine Besylate (Norvasc) 10 mg DAILY PO Last administered on 05/29/16 08: 22; Admin Dose 10 MG; Start 05/29/16 at 09:00 Aspirin 81 mg 81 mg DAILY PO ; Start 05/29/16 at 09:00 Potassium Chloride/Sodium Chloride (04/29 NS + KCl 20 Meq) 1,000 ml @ 80 mls/hr [id number] IV Last administered on 05/29/16 08:17; Admin Dose 80 MLS/HR; Start at 10:13 Ondansetron HCl (Zofran Inj) 4 mg Q6H PRN IV NAUSEA AND/OR VOMITING Last administered on 05/28/16 13:39; Admin Dose 4 MG; Start 05/28/16 at 10:30 Acetaminophen (Tylenol Tab) 650 mg Q6H PRN PO PAIN LEVEL 1-3 OR FEVER Last administered on 05/29/16 08:22; Admin Dose 650 MG; Start 05/28/16 at 10:30 Acetaminophen (Tylenol Supp) 650 mg Q6H PRN SC PAIN LEVEL 1-3 OR FEVER; Start 05/28/16 at 10:30 Morphine Sulfate (morphine) 2 mg Q4H PRN IV SEVERE PAIN LEVEL 7-10 Last administered on 05/29/16 07:52; Admin Dose 2 MG; Start 05/28/16 at 10:30 Docusate Sodium (Colace) 100 mg Q12H PRN PO CONSTIPATION; Start 05/28/16 at 10: 30 Bisacodyl (Dulcolax Supp) 10 mg DAILY PRN SC CONSTIPATION; Start 05/28/16 at 10 :30 Pantoprazole (Protonix Iv) 40 mg DAILY@06 IV Last administered on 05/29/16 05: 49; Admin Dose 40 MG; Start 05/29/16 at 06:00 Miscellaneous Information 1 ea NOTE XX ; Start 05/28/16 at 10:30 Glucose (Glutose) 15 gm Q15M PRN PO DECREASED GLUCOSE; Start 05/28/16 at 10:30 Glucose (Glutose) 22.5 gm Q15M PRN PO DECREASED GLUCOSE; Start 05/28/16 at 10: 30 Dextrose (D50w Syringe) 25 ml Q15M PRN IV DECREASED GLUCOSE; Start 05/28/16 at 10:30 Dextrose (D50w Syringe) 50 ml Q15M PRN IV DECREASED GLUCOSE; Start 05/28/16 at 10:30 Glucagon (Glucagen) 1 mg Q15M PRN IM DECREASED GLUCOSE; Start 05/28/16 at 10:30 Glucose 15 gm 15 gm Q15M PRN BUCCAL DECREASED GLUCOSE; Start 05/28/16 at 10:30 Piperacillin Sod/ Tazobactam Sod (Zosyn 3.375gm/ 100 ml (Pmx)) 100 ml @ 200 mls /hr Q6 IVPB Last administered on 05/29/16 08:18; Admin Dose 200 MLS/HR; Start 05/29/16 at 08:00 RODDY CASTELLANOS MD May 29, 2016 13:32
[2016-05-29] MEDS ORDERED: BISACODYL 10 MG SUPP PR PRN (14:00)
[2016-05-29] MEDS ORDERED: NA PHOSPHATE/BIPHOS 133 ML ENEMA PR PRN ×2 (14:00→15:00)
[2016-05-29] MEDS ORDERED: DOCUSATE SODIUM 100 MG CAP PO PRN (14:00)
[2016-05-29] MEDS ORDERED: HYDROmorphONE 1 MG/ML SYG IV PRN ×2 (14:00)
[2016-05-29] MEDS ORDERED: HYDROCODONE/APAP (5/325) TAB PO PRN ×2 (14:00)
[2016-05-29] MEDS: D5W-0.45 NACL + KCL 20 MEQ 1,000 ML IV SCH ×2 (14:31→23:46)
[2016-05-29 16:30] LABS: BASOPHILS % 0.1 % (0.0-2.0); HEMATOCRIT 38.6 % (37.0-47.0); LYMPHOCYTES # 0.8 10^3/ul (0.8-2.9); LYMPHOCYTES % 4.3 % (15.0-51.0); MEAN CORPUSCULAR HGB CONC 33.7 g/dl (32.0-37.0); MEAN PLATELET VOLUME 8.4 fl (7.4-10.4); MONOCYTE # 1.3 10^3/ul (0.3-0.9); MONOCYTES % 6.7 % (0.0-11.0); NEUTROPHIL # 17.5 10^3/ul (1.6-7.5); NEUTROPHILS % 88.9 % (39.0-77.0); PLATELET COUNT 289 10^3/UL (140-440); RED BLOOD COUNT 4.34 10^6/ul (4.20-5.40); RED CELL DISTRIBUTION WIDTH 13.3 % (11.5-14.5); UNCORRECTED WBC 19.7 10^3/ul (4.8-10.8); WHITE BLOOD COUNT 19.7 10^3/ul (4.8-10.8)
[2016-05-29 16:33] LABS: CONDITION 1
--- NOTE | 2016-05-29 21:25 | OPR ---
Date/Time of Note Date/Time of Note DATE: 05/29/16 TIME: 14:05 Operative Report Operative Findings [facility] INPATIENT OPERATIVE NOTE PLACE OF SERVICE: [facility] DATE OF SURGERY: 05/29/2016 PREOPERATIVE DIAGNOSIS: 1. Acute cholecystitis 2. Diabetes. 3. Gastritis. 4. Hyperlipidemia. 5. Hypertension. 6. BMI 32.5. POSTOPERATIVE DIAGNOSIS: 1. Severe acute cholecystitis with hydrops 2. Diabetes. 3. Gastritis. 4. Hyperlipidemia. 5. Hypertension. 6. BMI 32.5. 7. Liver steatosis OPERATION: 1. Laparoscopic cholecystectomy (modifier 22) 2. Lysis of adhesions 3. Core needle liver biopsy segment 6 x3 cores SURGEON: Alon Modi M.D. STRIPPER PRELIMINARY: None ANESTHESIA: General endotracheal tube anesthesia ANESTHESIOLOGIST: Adam Morton M.D. BRIEF SUMMARY: An otherwise uncomplicated but difficult laparoscopic cholecystectomy with lysis of adhesions and core needle liver biopsy of segment 6 of liver was performed with findings of severe acute cholecystitis and hepatic steatosis. BRIEF HISTORY: The patient is a very pleasant 55-year-old lady with comorbid issues including BMI of 32.5 and no other major medical or surgical issues who presented to [facility] emergency department with abdominal pain localized to the right upper quadrant associated with some nausea and vomiting. No prior episodes of similar issues in the past and no known prior biliary or pancreatic issues. Fairly healthy otherwise without any significant risk factors other than BMI 32.5. No other surgeries in the past. The patient' s workup included laboratory values that showed white blood cell count of 15.6 as well as elevated alkaline phosphatase to 173 and right upper quadrant ultrasound that showed heterogeneous echotexture of the liver suggesting diffuse steatosis as well as cholelithiasis with positive sonographic Mckeon sign without biliary tree dilatation. A noncontrast CT of the abdomen and pelvis was also done that demonstrated similar findings with degenerative changes of the spine and calcified atherosclerosis in the arterial vasculature. MRCP showed no evidence of obvious cholelithiasis. I recommended laparoscopic, possible open cholecystectomy. I explained the operation in detail with the help of diagrams and reviewed the risks, benefits, and alternatives and answered all the patient's questions. I believe that the patient understands and I obtained the patient's consent for this operation. For a detailed report of my consultation with patient, please refer to my separate consultation note. Please note that there were no family members present during my consent discussions with the patient, but her daughter was present during my initial visit with them. STATEMENT OF THE INFORMED CONSENT: The patient appeared to understand the risks of the operation to include, but not be limited to risk of postoperative pain and scar tissue, possible infection or bleeding requiring other interventions such as opening the wound, placement of drainage catheters, or other operative interventions; possible injury to surrounding to structures including bowel, bladder, bile duct, or blood vessels, or solid organs such as liver, kidney, or pancreas requiring other interventions or procedures; possible leakage of bile from surgical clip sites, suture lines, or worse, from common bile duct injury, causing significant increase in morbidity and mortality and requiring multiple interventions including but not limited to, placement of drainage catheters, imaging studies, as well as operative interventions; possible other source of sepsis such as urinary tract infections or pneumonias, or other sources of potentially life threatening problems such as deep venous thrombus formation causing pulmonary embolism, myocardial arrhythmias and infarctions, and even . After careful consideration of all their options, the patient and family appeared to understand and wished to proceed with surgery. DESCRIPTION OF PROCEDURE: After obtaining informed consent, the patient was brought into the operating room and was placed in a normal supine position, where successful general endotracheal tube anesthesia was performed. The patient 's abdominal skin was prepped and draped, from the nipple line down to the level of the groins, in the usual sterile fashion. Intravenous access was already in place, and appropriately chosen and dosed prophylactic intravenous antimicrobials were administered. We then called a surgical time-out where patient's identification, date of , nature of the operation, allergies, presence of intravenous antimicrobials, presence of needed equipment, and any other concerns were reviewed and agreed upon by all members of the operating room team. We then started the operation by placing a 5-mm skin incision in the right- upper quadrant, subcostal midclavicular line, and introduced a 5-mm [employer] trocar into the peritoneal space, visualizing all the layers of the abdominal wall as we entered. Note that there was no indication of any injury to underlying structures once we entered the peritoneum. We insufflated the abdominal cavity to a maximum pressure of 15 mmHg, again, confirmed lack of any injury to underlying structures prior to visualizing the rest of the abdominal cavity. We found the fundus of the gallbladder not to be visible. There was no evidence of malignancy. No evidence of calcifications, but small adhesions in right mid lateral abdomen near site of the most lateral trochar, and no other abnormalities. The liver appeared to be steatotic but otherwise healthy. With this information, we went a head and placed the other trocars under direct visualization, after injecting their sites with 0.25% Marcaine with epinephrine , placing a 5-mm trocar in the umbilical midline area, a 5-mm trocar in the right anterior axillary line, and a 12-mm trocar in the midline subxiphoid region. Prior to placement of the most lateral trochar, we did lysis of adhesions to free up enough space to place the trochar. With our instruments in place, we had excellent visualization and access to the right-upper quadrant. We then visualized the gallbladder, which was surrounded by omentum. With blunt dissection, we were able to free the adhesions of omentum onto body of the gallbladder, but prior to being able to grasp it, we had to drain the gallbladder with a laparoscopic needle. 120 ml of murky hydrops fluid was removed. We then grasped the fundus of the gallbladder and pointed up towards the right-upper quadrant. We were not able to grasp the infundibulum to pull it out in order to expose the critical triangle of Calot due to significant scarring. In order to maximize the degree of safety of the operation, we took the gallbladder top down with cautery. Liver was friable and it contributed to much larger than usual blood loss of about 200 ml total. Once I had dissected the gallbladder almost completely off the liver, we had to pause to provide adequate hemostasis. Note that we did not have to use cautery or clips. Bleeding was mainly oozing from the liver bed surface and stopped with holding pressure. To better be able to see the area near the triangle, I decided to do a partial cholecystectomy with one firing of the bowel (blue) load of the [place] 60 mm stapler. This gave us much better visualization of the area of the infundibulum. The cystic duct appeared to be much shorter than normal. There appeared to be a possible stone lodged in the neck of the infundibulum. In order to not leave this remnant in, I continued very meticulous dissection until we could clearly identify two structures that went into the remnant, namely the cystic duct and the cystic artery. We transected across the cystic artery between two surgical endoclips proximally and one distally. We repeated the same transection on the cystic duct using 3 clips proximally. We then delivered the gallbladder in two pieces out inside of an EndoCatch bag through the 12-mm trocar site with enlarging the fascia and without contaminating the wound. The gallbladder was sent to Pathology for evaluation. Returning to the abdominal cavity, we performed core needle biopsies from segment 6 of the liver using the [employer]ls liver core needle biopsy device. Specimens were again sent to pathology for permanent sections. We then ensured that there was adequate hemostasis and bile-stasis prior to removal of all of or equipment, including the pneumoperitoneum, and then reapproximating the 12- mm trocar site with 4 [id number] 0 Vicryl sutures, followed by washing the wounds with copious amounts of normal saline, and then reapproximating the skin using interrupted 4-0 Monocryl sutures. Light dressing was then applied. At the end of the operation, both the sponge count and needle count were reportedly correct x2. The patient tolerated the procedure without any reported complications. Please note that this operation qualifies for modifier 22 given the degree of difficulty of the case and complexity of decision making, particularly regarding dissection of the short cystic duct. ESTIMATED BLOOD LOSS: 200 mL. BLOOD OR BLOOD PRODUCT TRANSFUSIONS: None to my knowledge. SPECIMENS: 1. Gallbladder 2. Core needle liver biopsy segment 6 x3 cores COMPLICATIONS: None. DISPOSITION: Recovery area. Disclaimer: Inadvertent spelling and grammatical errors are likely due to EHR/ dictation software use and do not reflect on the quality of delivered patient care. ALON MODI M.D. May 29, 2016 21:25
[2016-05-30] MEDS: PANTOPRAZOLE 40 MG INJ IV SCH (05:50)
[2016-05-30] MEDS: PIPER-TAZO 3.375 GM IV (PMX) 100 ML IVPB SCH ×2 (05:50→12:11)
[2016-05-30] MEDS: INSULIN ASPART [NOVOLOG] 3 ML PEN SC SCH ×3 (05:55→11:55)
[2016-05-30] MEDS: morphine 2 MG INJ IV PRN (05:57)
[2016-05-30 06:22] LABS: BASOPHILS % 0.1 % (0.0-2.0); EOSINOPHILS % 0.1 % (0.0-7.0); HEMATOCRIT 33.5 % (37.0-47.0); HEMOGLOBIN 11.6 g/dl (12.0-16.0); LYMPHOCYTES # 1.2 10^3/ul (0.8-2.9); MEAN CORPUSCULAR HEMOGLOBIN 30.5 pg (29.0-33.0); MEAN CORPUSCULAR HGB CONC 34.7 g/dl (32.0-37.0); MEAN CORPUSCULAR VOLUME 87.9 fl (82.0-101.0); MEAN PLATELET VOLUME 8.3 fl (7.4-10.4); MONOCYTE # 1.1 10^3/ul (0.3-0.9); MONOCYTES % 8.7 % (0.0-11.0); NEUTROPHIL # 10.7 10^3/ul (1.6-7.5); NEUTROPHILS % 82.1 % (39.0-77.0); PLATELET COUNT 260 10^3/UL (140-440); RED BLOOD COUNT 3.81 10^6/ul (4.20-5.40); UNCORRECTED WBC 13.1 10^3/ul (4.8-10.8); WHITE BLOOD COUNT 13.1 10^3/ul (4.8-10.8)
[2016-05-30 06:37] LABS: POTASSIUM 3.8 mmol/L (3.5-5.1)
[2016-05-30 06:39] LABS: ALBUMIN/GLOBULIN RATIO 0.88; BILIRUBIN,INDIRECT 0.8 mg/dl (0-1.1); BILIRUBIN,TOTAL 0.8 mg/dl (0.2-1.3); CREATININE 0.6 mg/dl (0.44-1.00); TOTAL PROTEIN 6.4 g/dl (6.1-8.1)
[2016-05-30 06:40] LABS: CALCIUM 8.4 mg/dl (8.4-10.2); MAGNESIUM 2.2 mg/dl (1.7-2.5)
[2016-05-30 07:08] LABS: CONDITION 1; LH ANALYZER COMMENTS 1; RED CELL DISTRIBUTION WIDTH 13.7 % (11.5-14.5); SUSPECT 1
[2016-05-30 07:42] LABS: AMYLASE 50 U/L (11-123)
[2016-05-30] MEDS: ASPIRIN (EC) 81 MG TAB PO SCH (08:10)
[2016-05-30] MEDS: AMLODIPINE 10 MG TAB PO SCH (08:10)
[2016-05-30] MEDS: D5W-0.45 NACL + KCL 20 MEQ 1,000 ML IV SCH (08:11)
[2016-05-30 08:16] VITALS: BP 109/59; RESP 20
--- NOTE | 2016-05-30 08:42 | CONS ---
Date/Time of Note Date/Time of Note DATE: 05/30/16 TIME: 08:39 Assessment/Plan Assessment/Plan Additional Assessment/Plan Abdominal pain Nausea Vomiting * CT abdomen noted cholelithiasis * MRCP 05-28-16: Cholelithiasis with diffuse gallbladder wall thickening; recommend clinical correlation for cholecystitis. No significant biliary dilatation, filling defect, or choledocholithiasis. * ERCP if clinically indicated. Patient and daughter advised of risks/benefits/ alternatives to procedure and they are agreeable to proceed * Status post cholecystectomy 05-29-16 * Monitor labs Transaminitis, improving * Likely secondary to cholelithiasis * Acute hepatitis panel, negative Surgery following Further recommendations depend on clinical course Patient seen in collaboration with Dr. Gallegos Consultation Date/Type/Reason Admit Date/Time May 28, 2016 at 10:02 Type of Consultation: Gastroenterology 24 HR Interval Summary Free Text/Dictation Patient status post cholecystectomy Reports incisional pain Tolerating soft diet Transaminitis improving Exam/Review of Systems Vital Signs Vitals Vital Signs Date Time Temp Pulse Resp B/P Pulse Ox O2 Delivery O2 Flow Rate FiO2 05/30/16 08:16 99.1 85 20 109/59 94 05/29/16 21:00 Nasal Cannula 2.0 Intake and Output 05/29/16 05/29/16 05/30/16 15:00 23:00 07:00 Intake Total 1110 ml 1150 ml Output Total 300 ml Balance 810 ml 1150 ml Exam Constitutional: alert, obese, oriented, well developed Psych: nl mood/affect Head: normocephalic Eyes: EOMI, nl conjunctiva, nl lids ENMT: nl external ears & nose, nl lips & teeth, nl nasal mucosa & septum Respiratory: normal air movement Cardiovascular: regular rate and rhythm Gastrointestinal: soft, tender (incisional) Neurological: ESCROW AGENT II-XII intact Results Result Diagram: 05/30/16 0535 05/30/16 0535 Results 24 hrs Laboratory Tests Test 05/29/16 13:28 05/29/16 15:44 05/29/16 17:26 05/29/16 23:37 Bedside Glucose 211 225 H 186 Basophils # 0.0 Basophils % 0.1 Eosinophils # 0.0 Eosinophils % 0.0 Hematocrit 38.6 Hemoglobin 13.0 Lymphocytes # 0.8 Lymphocytes % 4.3 L Mean Corpuscular Hemoglobin 30.0 Mean Corpuscular Hemoglobin Concent 33.7 Mean Corpuscular Volume 89.0 Mean Platelet Volume 8.4 Monocytes # 1.3 H Monocytes % 6.7 Neutrophils # 17.5 H Neutrophils % 88.9 H Nucleated Red Blood Cells # 0.0 Nucleated Red Blood Cells % 0.0 Platelet Count 289 Red Blood Count 4.34 Red Cell Distribution Width 13.3 White Blood Count 19.7 H Test 05/30/16 05:35 05/30/16 05:49 05/30/16 07:40 Alanine Aminotransferase (ALT/SGPT) 112 H Albumin 3.0 #L Albumin/Globulin Ratio 0.88 Alkaline Phosphatase 111 Amylase Level 50 Anion Gap 11 # Aspartate Amino Transf (AST/SGOT) 60 H Basophils # 0.0 Basophils % 0.1 Blood Urea Nitrogen 7 Calcium Level 8.4 Carbon Dioxide Level 27 Chloride Level 103 Creatinine 0.60 Direct Bilirubin 0.00 Eosinophils # 0.0 Eosinophils % 0.1 Globulin 3.40 H Glucose Level 205 Hematocrit 33.5 L Hemoglobin 11.6 L Indirect Bilirubin 0.8 Lipase 86 Lymphocytes # 1.2 Lymphocytes % 9.0 L Magnesium Level 2.2 Mean Corpuscular Hemoglobin 30.5 Mean Corpuscular Hemoglobin Concent 34.7 Mean Corpuscular Volume 87.9 Mean Platelet Volume 8.3 Monocytes # 1.1 H Monocytes % 8.7 Neutrophils # 10.7 H Neutrophils % 82.1 H Nucleated Red Blood Cells # 0.0 Nucleated Red Blood Cells % 0.0 Platelet Count 260 Potassium Level 3.8 Red Blood Count 3.81 L Red Cell Distribution Width 13.7 Sodium Level 137 Total Bilirubin 0.8 Total Protein 6.4 # White Blood Count 13.1 #H Bedside Glucose 191 191 Medications Medications Current Medications Amlodipine Besylate (Norvasc) 10 mg DAILY PO Last administered on 05/29/16 08: 22; Admin Dose 10 MG; Start 05/29/16 at 09:00 Aspirin (Halfprin) 81 mg DAILY PO Last administered on 05/30/16 08:10; Admin Dose 81 MG; Start 05/29/16 at 09:00 Ondansetron HCl (Zofran Inj) 4 mg Q6H PRN IV NAUSEA AND/OR VOMITING Last administered on 05/28/16 13:39; Admin Dose 4 MG; Start 05/28/16 at 10:30 Acetaminophen (Tylenol Tab) 650 mg Q6H PRN PO PAIN LEVEL 1-3 OR FEVER Last administered on 05/29/16 08:22; Admin Dose 650 MG; Start 05/28/16 at 10:30 Acetaminophen (Tylenol Supp) 650 mg Q6H PRN MO PAIN LEVEL 1-3 OR FEVER; Start 05/28/16 at 10:30 Morphine Sulfate (morphine) 2 mg Q4H PRN IV SEVERE PAIN LEVEL 7-10 Last administered on 05/30/16 05:57; Admin Dose 2 MG; Start 05/28/16 at 10:30 Pantoprazole (Protonix Iv) 40 mg DAILY@06 IV Last administered on 05/30/16 05: 50; Admin Dose 40 MG; Start 05/29/16 at 06:00 Miscellaneous Information 1 ea NOTE XX ; Start 05/28/16 at 10:30 Glucose (Glutose) 15 gm Q15M PRN PO DECREASED GLUCOSE; Start 05/28/16 at 10:30 Glucose (Glutose) 22.5 gm Q15M PRN PO DECREASED GLUCOSE; Start 05/28/16 at 10: 30 Dextrose (D50w Syringe) 25 ml Q15M PRN IV DECREASED GLUCOSE; Start 05/28/16 at 10:30 Dextrose (D50w Syringe) 50 ml Q15M PRN IV DECREASED GLUCOSE; Start 05/28/16 at 10:30 Glucagon (Glucagen) 1 mg Q15M PRN IM DECREASED GLUCOSE; Start 05/28/16 at 10:30 Glucose 15 gm 15 gm Q15M PRN BUCCAL DECREASED GLUCOSE; Start 05/28/16 at 10:30 Piperacillin Sod/ Tazobactam Sod 100 ml @ 200 mls/hr Q6 IVPB Last administered on 05/30/16 05:50; Admin Dose 200 MLS/HR; Start 05/29/16 at 08:00 Potassium Chloride/Dextrose/ Sod Cl (D5-1/2ns + KCl 20 Meq) 1,000 ml @ 100 mls/ hr Q10H IV Last administered on 05/29/16 23:46; Admin Dose 100 MLS/HR; Start at 13:40 Acetaminophen/ Hydrocodone Bitart ([place] (5/325)) 1 tab Q4H PRN PO PAIN LEVEL 4 -7; Start 05/29/16 at 14:00 Acetaminophen/ Hydrocodone Bitart ([place] (5/325)) 2 tab Q4H PRN PO PAIN LEVEL 7 -10; Start 05/29/16 at 14:00 Hydromorphone HCl (Dilaudid) 0.5 mg Q2H PRN IV PAIN; Start 05/29/16 at 14:00 Hydromorphone HCl (Dilaudid) 1 mg Q2H PRN IV PAIN; Start 05/29/16 at 14:00 Docusate Sodium (Colace) 100 mg BID PRN PO CONSTIPATION; Start 05/29/16 at 14:00 Bisacodyl (Dulcolax Supp) 10 mg BID PRN MO CONSTIPATION; Start 05/29/16 at 14:00 Enoxaparin Sodium (Lovenox) 40 mg DAILY SC Last administered on 05/30/16t 08:13 ; Admin Dose 40 MG; Start 05/30/16 at 09:00 Bisacodyl (Dulcolax Supp) 10 mg BID MO ; Start 05/31/16 at 09:00; Status Future Hold Docusate Sodium (Colace) 100 mg BID PO ; Start 05/31/16 at 09:00; Status Future Hold Sodium Biphosphate/ Sodium Phosphate (Fleet Enema) 133 ml BID@03,15 PRN MO CONSTIPATION; Start 05/29/16 at 15:00 Sodium Biphosphate/ Sodium Phosphate (Fleet Enema) 133 ml BID@03,15 MO ; Start 05/31/16 at 03:00; Status Future Hold Diagnostic Test (Pha) (Accucheck) 1 02 XX ; Start 05/31/16 at 02:00 BASILIO KIM May 30, 2016 08:42
[2016-05-30] MEDS ORDERED: ENOXAPARIN 40 MG/0.4 ML SYG SC SCH (09:00)
--- NOTE | 2016-05-30 10:58 | PDOCDIS ---
Discharge Instructions CONDITION Patient Condition: Stable HOME CARE INSTRUCTIONS: Diet Instructions: Low Fat /CholesterolSpecial Diet: soft diet ACTIVITY: Activity Restrictions: Slowly Increase Activity Rest between Activity Avoid heavy lifting Avoid Heavy Housework FOLLOW UP/APPOINTMENTS Appointments follow up with General surgery in one week RODDY CASTELLANOS MD May 30, 2016 10:58
[2016-05-30] MEDS ORDERED: CEPH500C PO (11:01)
[2016-05-30] MEDS ORDERED: HYDR-906 PO (11:01)
[2016-05-30] MEDS ORDERED: ONDA4TAB8 PO (11:01)
[2016-05-30] MEDS ORDERED: DOCU-144 PO (11:01)
[2016-05-30] MEDS ORDERED: MTF1000T PO (11:14)
--- NOTE | 2016-05-30 16:34 | PN ---
Date/Time of Note Date/Time of Note DATE: 05/30/16 TIME: 16:28 Assessment/Plan Lines/Catheters IV Catheter Type (from Nrsg): Saline Lock Zayas in Place (from Nrsg): No Assessment/Plan Assessment/Plan [facility] Progress Note Date of Service: 05/30/16 Today's Impression & Plan: Overall doing well post op without major issues. No major wound problems. With above assessment, I've recommended the following for today: 1. D/c home with 2 days of oral antimicrobials 2. Please include the following in discharge instructions: Please call [phone] if any of fever, nausea, vomiting, discharge from wound , wound redness, increase or sudden pain, blood in stool or vomit, or any other unusual signs or symptoms. Also, please call the same number in a few days to schedule an appointment for your follow up visit. Patient may remove dressings tomorrow. Showers OK starting tomorrow. No swimming , hot tub or bath for 2 weeks. No lifting more than 25 lbs for 8 weeks. Thank you again for your great care of this very pleasant patient and wonderful family. If there are any questions, please feel free to call me at [phone]. TOTAL VISIT TIME: 20 minutes of which more than half was spent in [id number] discussion with the patient, possibly including family, as well as coordination of care between multiple physicians and providers. Disclaimer: Inadvertent spelling or grammatical errors are likely due to EHR/ dictation software use and do not reflect on the overall quality of patient care. Updated Clinical Summary The patient is a very pleasant 55-year-old lady with comorbid issues including BMI of 32.5 and no other major medical or surgical issues who presented to [facility] emergency department with abdominal pain localized to the right upper quadrant associated with some nausea and vomiting. No prior episodes of similar issues in the past and no known prior biliary or pancreatic issues. Fairly healthy otherwise without any significant risk factors other than BMI 32.5. No other surgeries in the past. The patient's workup included laboratory values that showed white blood cell count of 15.6 as well as elevated alkaline phosphatase to 173 and right upper quadrant ultrasound that showed heterogeneous echotexture of the liver suggesting diffuse steatosis as well as cholelithiasis with positive sonographic Mckeon sign without biliary tree dilatation. A noncontrast CT of the abdomen and pelvis was also done that demonstrated similar findings with degenerative changes of the spine and calcified atherosclerosis in the arterial vasculature. MRCP showed no evidence of obvious cholelithiasis. S/p laparoscopic cholecystectomy and lysis of adhesions with core needle liver biopsy segment 6 x3 cores on 05/29/16. Comorbidities: 1. Severe acute cholecystitis with hydrops 2. Diabetes. 3. Gastritis. 4. Hyperlipidemia. 5. Hypertension. 6. BMI 32.5. 7. Liver steatosis Subjective: No major events or complaints; no major abd pain and under control with medications; no n/v/d; no sob or cp; - flatus; - BM; minimal activity Objective: Vitals: See below Exam: GENERAL: On exam, the patient was laying in bed and appeared to be comfortable and in no acute distress. ABDOMEN: Soft, nontender and nondistended. Incision dressings are clean, dry and intact without any evidence of erythema, edema, discharge, or hernia. There are no peritoneal signs or guarding. SKIN: Skin appears to be pink and feels warm to touch. NEUROLOGIC: Patient is awake, alert, and follows commands appropriately. Exam/Review of Systems Vital Signs Vitals Vital Signs Date Time Temp Pulse Resp B/P Pulse Ox O2 Delivery O2 Flow Rate FiO2 05/30/16 08:16 99.1 85 20 109/59 94 05/29/16 21:00 Nasal Cannula 2.0 Intake and Output 05/29/16 05/29/16 05/30/16 14:59 22:59 06:59 Intake Total 1110 ml 1150 ml Output Total 300 ml Balance 810 ml 1150 ml Results Result Diagram: 05/30/16 0535 05/30/16 0535 ALON MODI M.D. May 30, 2016 16:34
[2016-05-31] MEDS ORDERED: ACCUCHECK XX SCH (02:00)
--- NOTE | 2016-05-31 02:31 | DS ---
DATE OF ADMISSION: 05/28/2016 DATE OF DISCHARGE: 05/30/2016 CONSULTANTS: 1. Gastrointestinal. 2. General Surgery. PROCEDURES: 1. Laparoscopic cholecystectomy. 2. Lysis of adhesions. 3. Core needle liver biopsy; segment 6 x 3, on 05/29/2016. DISCHARGE DIAGNOSES: 1. Acute cholecystitis. Gastroenterology and General Surgery were consulted. Patient was placed o n broad spectrum IV antibiotics, status post laparoscopic cholecystectomy. 2. Diabetes mellitus. Continue metformin. 3. Essential hypertension. Well controlled on medical management. 4. Dyslipidemia. Diet controlled. 5. Transaminitis secondary to acute cholecystitis, improving. 6. Gastroesophageal reflux disease. Continue Pepcid. MEDICATIONS: 1. Keflex 500 mg 1 tab. 2. Colace 100 mg. 3. [place] 5/325. 4. Zofran 4 mg. 5. Amlodipine 10 mg. 6. Aspirin 81 mg. 7. Lipitor 80 mg. 8. Famotidine 40 mg. 9. Loratadine 10 mg 10. Metformin 500 mg. ALLERGIES: NO KNOWN DRUG ALLERGIES. DISPOSITION: Home. DIET: Low carbohydrate, low fat diet. ACTIVITY: Light activity x4 weeks. HOSPITAL COURSE: This is a pleasant 55-year-old female with past medical history of hypertension, d yslipidemia, GERD, diabetes mellitus, who presented to [facility] Emergency Room on 2016 secondary to having abdominal pain in midepigastric right upper quadrant x1 day, accompanied wi th nausea and 6-7 episodes of vomiting, which was nonbilious and nonbloody. The patient upon arriva l to the emergency room was found to have a mildly elevated temperature 99.3, and then when increase d to 101.1, patient was placed on broad spectrum IV antibiotics, Zosyn. Was made n.p.o.. IV fluid and pain medication was initiated. Patient was seen and evaluated with general surgery and gastroen terologist. The imaging was obtained, which showed cholelithiasis with diffuse gallbladder wall thi ckening. No significant biliary dilation, filling defect, or choledocholithiasis. After evaluation with general surgery, discussing the mode of treatment, and the risks and the benefits of the surge ry, the patient agreed to proceed with surgical intervention. Therefore, the patient was taken to O R on 05/29/2016 for laparoscopic cholecystectomy, which the patient tolerated the procedure well, an d was taken to recovery room. Then the patient was started clear liquid diet and has been advanced as tolerated. This morning, patient's WBC has improved significantly to 13.1, hemoglobin 11.3, herbie tocrit 30.5, platelets 260,000. Sodium 137, potassium 3.8, chloride 103, bicarbonate 27, BUN 77, cr eatinine 0.68, glucose 205. AST 60, ALT 112, alkaline phosphatase 111. Bilirubin is within normal limit. At this time, the patient is medically stable to be discharged home with close followup with general surgery and primary care physician as outpatient. The patient's IgM nonreactive, hepatitis B is antigen negative, hepatitis B core antibody negative, and hepatitis C negative. Total amount of time was spent for evaluation of patient and discharge workup was 40 minutes. Dictated By: RODDY QUINONES/NTS Conf#: [id number] DID#: [id number]
[2016-05-31] MEDS ORDERED: NA PHOSPHATE/BIPHOS 133 ML ENEMA PR SCH (03:00)
[2016-05-31] MEDS ORDERED: BISACODYL 10 MG SUPP PR SCH (09:00)
[2016-05-31] MEDS ORDERED: DOCUSATE SODIUM 100 MG CAP PO SCH (09:00)
== END 2016-05-30 16:45 | disposition home or self-care (01) | DRG 418 ==
LOC: E/R 07:07 → MS2 10:02
PROVIDERS: ADMIT Family Medicine; ATTEND Family Medicine
PROC: 0FB14ZX Excision of Right Lobe Liver, Percutaneous Endoscopic Approach, Diagnostic (ICD-10-PCS; 2016-05-29)
PROC: 0DNW4ZZ Release Peritoneum, Percutaneous Endoscopic Approach (ICD-10-PCS; 2016-05-29)
PROC: 0FT44ZZ Resection of Gallbladder, Percutaneous Endoscopic Approach (ICD-10-PCS; principal; 2016-05-29 15:00)
DX: K80.00 Calculus of gallbladder with acute cholecystitis without obstruction (principal); K82.1 Hydrops of gallbladder; K76.0 Fatty (change of) liver, not elsewhere classified; E11.9 Type 2 diabetes mellitus without complications; I10 Essential (primary) hypertension; E78.5 Hyperlipidemia, unspecified; K21.9 Gastro-esophageal reflux disease without esophagitis; K66.0 Peritoneal adhesions (postprocedural) (postinfection); R74.0 Nonspecific elevation of levels of transaminase and lactic acid dehydrogenase [LDH]
CPT/HCPCS: 36415; 71010; 74176; 74181; 76705; 80053; 80061; 81001; 81003; 82150; 82962; 83036; 83690; 83735; 84484; 85025; 86704; 86709; 86803; 87340; 88304; 88307; 88313; 93005; 96372; 96374; 96375; C9113; C9250; J0330; J1170; J1650; J1815; J2250; J2270; J2370; J2405; J2543; J2710; J2765; J3010; J3480; J7030

== ENCOUNTER 2016-06-06 14:37 | Outpatient (CLI) | payer BC ==
[~2016-06-06] VITALS: Ht 149.9 cm; Wt 72.7 kg
[~2016-06-06 14:37] MED LIST: AMLO-147 PO; ASPI-664 PO; ATOR80TA75 PO; CEPH500C PO; DOCU-144 PO; FAMO40TA52 PO; HYDR-906 PO; LORA-186 PO; MTF1000T PO; ONDA4TAB8 PO
--- NOTE | 2016-06-06 14:45 | PN ---
Date/Time of Note Date/Time of Note DATE: 06/06/16 TIME: 14:43 Outpatient Progress Note Chief Complaint Abdominal pain/diabetes/hypertension/hyperlipidemia HPI Abdominal pain/Patient still has abdominal pain, no fevers chill, no jaundice, patient has cholecystectomy, patient has acute cholecystitis, doing better, patient's surgical wound clean, no redness or discharge, Diabetes/no correct supported hypoglycemia, gastroparesis, Hypertension/no headache or dizziness, no lightheadedness, Hyperlipidemia/no xanthoma, on medication, side effect of medication, Review of Systems Const: No Fever, no chills, no Wt. loss, no Fatigue, normal appetite, no diaphoresis. Eyes: No pain, no discharge, no redness, no visual change, no foreign body. ENT: No pain, no bleeding, no congestion, no sore throat, no dysphagia, no discharge or rhinitis. Lymph: No adenopathy, no tender nodes, no lymphedema. Resp: No SOB, no cough, no sputum, no wheezing, no chest pain. CV: No chest pain, no palpitaions, no JOHNSON, no PND, no edema. GI: Normal appetite, slight abdominal pain, no nausea, no vomiting, no diarrhea , no blood, no constipation surgical wound clean, no bleeding or discharge, no redness,. : No frequency, no urgency, no dysuria, no hematuria, no flank pain, no discharge, no bleeding. Musc: No bone/joint pain, no back pain, no neck pain, no knee pain, no restricted ROM. Skin: No rash, no skin lesions, no erythema, no laceration, no bruising, no pruritus. Neuro: No OLIVEIRA, no dizziness, no syncope, no seizure, no focal-weakness. Endo: No polyuria, no polydypsia, no dry-skin, no temp-intolerance. Psych: No hallucinations, no depression, no anxiety, no suicidal ideation. Ext: No edema, no pain, no ulcer, no weakness. Physical Exam General Appearance: A 55 year-old female who appears well-developed, well- nourished, in no acute distress. HEENT: Head normocephalic, atraumatic. Pupils equal, round, reactive to light and accommodate. Sclerae are no jaundice. Nasal turbinates pink without erythema or nasal discharge. Mucous membranes pink and moist without lesions. Oropharynx clear without any exudate or discharge. NECK: Supple. Trachea midline, No thyromegaly, No cervical lymphadenopathy, No mass, No carotid bruits, No JVD, Carotid pulses 2+ bilaterally. PULMONARY: Clear to auscultaion bilaterally, No retractions, Chest expansion symmetric bilaterally, no rales, no ronchi, no dulness on percussion. CARDIAC: Normal SI and S2, Regular rate and rythm, no murmur, gallop, or rub. GASTROINTESTINAL: Abdomen is soft, minimal discomfort, mostly at the site of her surgery,, Non Rigid, No distention, Positive bowel sounds x4 quadrants, Liver normal. SKIN: Warm, dry, no rash, no bruise, no echmosis. EXTREMITIES: Bilateral lower extremities normal, no edema, no phlabitus, pulse palpable, no contracture. MUSCULOSKELETAL: Spine Normal, Non-tender, Normal range of motion, No swelling, no deformity, no clubbing, or cyanosis, the patient has no edema to bilateral lower extremities, dorsalis pedis pulses palpable bilaterally. NEUROLOGIC: The patient is awake, alert, oriented, responding to yes/no questions appropriately, moving all extremities, cranial nerve intact, normal strenght, normal power, normal coordination, normal gait. Allergies Coded Allergies: No Known Allergy (Unverified , 05/28/16) PMH Diabetes/hypertension/hyperlipidemia/cholecystitis/status post cholecystectomy Social Hx No smoking or drinking, Family Hx Noncontributory Assessment/Plan Impression Abdominal pain improving/S/P laparoscopic cholecystectomy/diabetes/hypertension/ hyperlipidemia Plan Patient has minimal abdominal discomfort, no fever or chill, no jaundice, will monitor closely, discussed with the patient, patient education done, Patient education about diabetes and hypertension, and take the medication regularly, lose weight, control the pressure, Patient to follow with the primary care physician, patient does housekeeping, 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 to lift Heavy material, If fever or any complication to call us or hospital or ER or primary physician, Medications Home Meds Active Scripts Metformin* (Glucophage*) 1,000 Mg Tablet, 1000 MG PO BID, #60 TAB Prov:RODDY CASTELLANOS MD 05/30/16 Hydrocodone/Acetaminophen ([place] 5-325 Tablet) 1 Each Tablet, 1 EACH PO Q8H, #1 TAB Prov:RODDY CASTELLANOS MD 05/30/16 Ondansetron Hcl* (Zofran*) 4 Mg Tablet, 4 MG PO Q6H Y for NAUSEA AND OR VOMITING , #20 TAB Prov:RODDY CASTELLANOS MD 05/30/16 Docusate Sodium* (Colace*) 100 Mg Capsule, 100 MG PO DAILY Y for CONSTIPATION, # 15 CAP Prov:RODDY CASTELLANOS MD 05/30/16 Cephalexin* (Cephalexin*) 500 Mg Capsule, 500 MG PO Q8, #10 CAP Prov:RODDY CASTELLANOS MD 05/30/16 Reported Medications Aspirin (Low Dose Aspirin) 81 Mg Tablet.dr, 81 MG PO DAILY, #30 TAB 05/28/16 Atorvastatin* (Atorvastatin*) 80 Mg Tablet, 80 MG PO QHS, #30 TAB 05/28/16 Amlodipine Besylate* (Amlodipine Besylate*) 10 Mg Tablet, 10 MG PO DAILY, #30 TAB 05/28/16 Loratadine* (Claritin*) 10 Mg Tablet, 10 MG PO DAILY, TAB 05/28/16 Famotidine* (Famotidine*) 40 Mg Tablet, 40 MG PO HS, #30 TAB 05/28/16 BOB SANTANA MD Jun 06, 2016 14:44
[2016-06-06 14:53] VITALS: BP 119/61; PULSE 81; RESP 16; Ht 149.9 cm; Wt 72.7 kg
== END 2016-06-06 16:47 | disposition home or self-care (01) ==
LOC: DCC 14:37
PROVIDERS: ATTEND Internal Medicine
DX: R10.9 Unspecified abdominal pain (principal); E11.9 Type 2 diabetes mellitus without complications; I10 Essential (primary) hypertension; E78.5 Hyperlipidemia, unspecified
CPT/HCPCS: G0463

== ENCOUNTER 2016-06-12 10:53 | Outpatient (CLI) | payer BC ==
[~2016-06-12] VITALS: Ht 149.9 cm; Wt 72.7 kg
[~2016-06-12 10:53] MED LIST changes: -CEPH500C PO
[2016-06-12 10:57] VITALS: BP 136/72; PULSE 86; RESP 18; Ht 149.9 cm; Wt 72.7 kg
--- NOTE | 2016-06-12 17:51 | PN ---
Date/Time of Note Date/Time of Note DATE: 06/12/16 TIME: 17:43 Assessment/Plan Assessment/Plan Assessment/Plan [facility] Progress Note Date of Service: 06/12/16 Today's Impression & Plan: Overall doing well post op without major issues. No major wound problems. With above assessment, I've recommended the following for today: 1. F/u with PCP 2. F/u with us prn 3. Referral to sales review clerk (Dr. Rico Snyder suggested) for management of rather significant steatosis Thank you again for your great care of this very pleasant patient and wonderful family. If there are any questions, please feel free to call me at [phone]. TOTAL VISIT TIME: 20 minutes of which more than half was spent in [id number] discussion with the patient, possibly including family, as well as coordination of care between multiple physicians and providers. Disclaimer: Inadvertent spelling or grammatical errors are likely due to EHR/ dictation software use and do not reflect on the overall quality of patient care. Updated Clinical Summary The patient is a very pleasant 55-year-old lady with comorbid issues including BMI of 32.5 and no other major medical or surgical issues who presented to [facility] emergency department with abdominal pain localized to the right upper quadrant associated with some nausea and vomiting. No prior episodes of similar issues in the past and no known prior biliary or pancreatic issues. Fairly healthy otherwise without any significant risk factors other than BMI 32.5. No other surgeries in the past. The patient's workup included laboratory values that showed white blood cell count of 15.6 as well as elevated alkaline phosphatase to 173 and right upper quadrant ultrasound that showed heterogeneous echotexture of the liver suggesting diffuse steatosis as well as cholelithiasis with positive sonographic Mckeon sign without biliary tree dilatation. A noncontrast CT of the abdomen and pelvis was also done that demonstrated similar findings with degenerative changes of the spine and calcified atherosclerosis in the arterial vasculature. MRCP showed no evidence of obvious cholelithiasis. S/p laparoscopic cholecystectomy and lysis of adhesions with core needle liver biopsy segment 6 x3 cores on 05/29/16. D/c home . Final path: cholecystitis without obvious malignancy; mod to severe steatosis, macrovesicular and microvesicular. Comorbidities: 1. Severe acute cholecystitis with hydrops 2. Diabetes. 3. Gastritis. 4. Hyperlipidemia. 5. Hypertension. 6. BMI 32.5. 7. Liver steatosis Subjective: No major events or complaints; no major abd pain and no longer on pain medications; no n/v/d; no sob or cp; + flatus; + BM; minimal activity Objective: Vitals: See below Exam: GENERAL: On exam, the patient was sitting in a chair and appeared to be comfortable and in no acute distress. ABDOMEN: Soft, nontender and nondistended. Incisions are clean, dry and intact without any evidence of erythema, edema, discharge, or hernia. There are no peritoneal signs or guarding. SKIN: Skin appears to be pink and feels warm to touch. NEUROLOGIC: Patient is awake, alert, and follows commands appropriately. Exam/Review of Systems Vital Signs Vitals Vital Signs Date Time Temp Pulse Resp B/P Pulse Ox O2 Delivery O2 Flow Rate FiO2 06/12/16 10:57 97.9 86 18 136/72 96 Room Air ALON MODI M.D. Jun 12, 2016 17:51
== END 2016-06-12 16:44 | disposition home or self-care (01) ==
LOC: HPC 10:53
PROVIDERS: ATTEND Transplant Surgery
DX: K81.9 Cholecystitis, unspecified (principal); E11.9 Type 2 diabetes mellitus without complications; K29.70 Gastritis, unspecified, without bleeding; E78.5 Hyperlipidemia, unspecified; I10 Essential (primary) hypertension; K76.0 Fatty (change of) liver, not elsewhere classified
CPT/HCPCS: G0463

== ENCOUNTER 2016-06-20 14:28 | Outpatient (CLI) | payer BC ==
[~2016-06-20] VITALS: Ht 149.9 cm; Wt 73.6 kg
[~2016-06-20 14:28] MED LIST changes: -HYDR-906 PO
[2016-06-20 14:38] VITALS: BP 130/66; PULSE 81; RESP 16; Ht 149.9 cm; Wt 73.6 kg
--- NOTE | 2016-06-20 14:51 | PN ---
Date/Time of Note Date/Time of Note DATE: 06/20/16 TIME: 14:45 Outpatient Progress Note Chief Complaint Abdominal pain/diabetes/status post cholecystectomy/hypertension/hyperlipidemia HPI Abdominal pain/patient has slight epigastric discomfort, no fever or chill, mostly pain just above bowel the port of entry in epigastric area, no fever or chill, no jaundice, Diabetes/no polydipsia. Hypoglycemia, gastroparesis, Status post cholecystectomy,/patient has a recent cholecystectomy, all the port of entry is clean, no bleeding discharge or redness, no jaundice, Hypertension/no headache or dizziness or lightheadedness, Hyperlipidemia/no xanthoma, on medication, no side effect, Review of Systems Const: No Fever, no chills, no Wt. loss, no Fatigue, normal appetite, no diaphoresis. Eyes: No pain, no discharge, no redness, no visual change, no foreign body. ENT: No pain, no bleeding, no congestion, no sore throat, no dysphagia, no discharge or rhinitis. Lymph: No adenopathy, no tender nodes, no lymphedema. Resp: No SOB, no cough, no sputum, no wheezing, no chest pain. CV: No chest pain, no palpitaions, no JOHNSON, no PND, no edema. GI: Normal appetite, no pain, no nausea, no vomiting, no diarrhea, no blood, no constipation. : No frequency, no urgency, no dysuria, no hematuria, no flank pain, no discharge, no bleeding. Musc: No bone/joint pain, no back pain, no neck pain, no knee pain, no restricted ROM. Skin: No rash, no skin lesions, no erythema, no laceration, no bruising, no pruritus. port-Of Entry for cholecystectomy clean, no cellulitis no bleeding or discharge, Neuro: No OLIVEIRA, no dizziness, no syncope, no seizure, no focal-weakness. Endo: No polyuria, no polydypsia, no dry-skin, no temp-intolerance. Psych: No hallucinations, no depression, no anxiety, no suicidal ideation. Ext: No edema, no pain, no ulcer, no weakness. Physical Exam General Appearance: A 55 year-oldfemalwho appears well-developed, well-nourished , in no acute distress HEENT:Head normocephalic, atraumatic. Pupils equal, round, reactive to light and accommodate. Sclerae are no jaundice. Nasal turbinates pink without erythema or nasal discharge. Mucous membranes pink and moist without lesions. Oropharynx clear without any exudate or discharge NECK:Supple. Trachea midline, No thyromegaly, No cervical lymphadenopathy, No mass, No carotid bruits, No JVD, Carotid pulses 2+ bilaterally PULMONARY:Clear to auscultaion bilaterally, No retractions, Chest expansion symmetric bilaterally, no rales, no ronchi, no dulness on percussion CARDIAC:Normal SI and S2, Regular rate and rythm, no murmur, gallop, or rub GASTROINTESTINAL:Abdomen is soft, non-tender, Non Rigid, No distention, Positive bowel sounds x4 quadrants, Liver normal SKIN:Warm, dry, no rash, no bruise, no echmosis port of entry for cholecystectomy is clean, no redness, no bleeding or discharge, EXTREMITIES:Bilateral lower extremities normal, no edema, no phlabitus, pulse palpable, no contracture MUSCULOSKELETAL:Spine Normal, Non-tender, Normal range of motion, No swelling, no deformity, no clubbing, or cyanosis, the patient has no edema to bilateral lower extremities, dorsalis pedis pulses palpable bilaterally NEUROLOGIC:The patient is awake, alert, oriented, responding to yes/no questions appropriately, moving all extremities, cranial nerve intact, normal strenght, normal power, normal coordination, normal gait Allergies Coded Allergies: No Known Allergy (Unverified , 05/28/16) PMH No change Social Hx No change Family Hx No change Assessment/Plan Impression Abdominal pain/diabetes/status post cholecystectomy/hypertension/hyperlipidemia Plan Patient has minimal abdominal discomfort, it is just about the port of entry, in epigastric area, no bleeding, no redness, no pus, will monitor closely, discussed with the patient, Patient to take Tylenol when necessary for pain, oriented we'll with the foot, Patient education done about diabetes and hypertension, Patient to follow with the primary care physician in 2 weeks, Medications Home Meds Active Scripts Metformin* (Glucophage*) 1,000 Mg Tablet, 1000 MG PO BID, #60 TAB Prov:RODDY CASTELLANOS MD 05/30/16 Ondansetron Hcl* (Zofran*) 4 Mg Tablet, 4 MG PO Q6H Y for NAUSEA AND OR VOMITING , #20 TAB Prov:RODDY CASTELLANOS MD 05/30/16 Docusate Sodium* (Colace*) 100 Mg Capsule, 100 MG PO DAILY Y for CONSTIPATION, # 15 CAP Prov:RODDY CASTELLANOS MD 05/30/16 Reported Medications Aspirin (Low Dose Aspirin) 81 Mg Tablet.dr, 81 MG PO DAILY, #30 TAB 05/28/16 Atorvastatin* (Atorvastatin*) 80 Mg Tablet, 80 MG PO QHS, #30 TAB 05/28/16 Amlodipine Besylate* (Amlodipine Besylate*) 10 Mg Tablet, 10 MG PO DAILY, #30 TAB 05/28/16 Loratadine* (Claritin*) 10 Mg Tablet, 10 MG PO DAILY, TAB 05/28/16 Famotidine* (Famotidine*) 40 Mg Tablet, 40 MG PO HS, #30 TAB 05/28/16 BOB SANTANA MD Jun 20, 2016 14:51
== END 2016-06-20 16:55 | disposition home or self-care (01) ==
LOC: DCC 14:28
PROVIDERS: ATTEND Internal Medicine
DX: R10.9 Unspecified abdominal pain (principal); E11.9 Type 2 diabetes mellitus without complications; I10 Essential (primary) hypertension; E78.5 Hyperlipidemia, unspecified; Z90.49 Acquired absence of other specified parts of digestive tract
CPT/HCPCS: G0463